=== PATIENT | male | born 1940 | race Caucasian/White ===

== ENCOUNTER → 2018-02-11 | Outpatient (CLI) | payer MEDICARE, OTHER ==
[2015-09-16 11:39] VITALS: BMI 20.5
[~2018-02-11] MED LIST: AMLO-101 PO; ASPI-1403 PO; AZIT500T47 PO; CEPH-13 PO; COZAAR PO; DUONEB INH; FLUT12HF2 IH; FURO-45 PO; IBAN150T6 PO; LEV500 PO; LEVO-85 PO; LOR1 PO; LORA-1455 PO; LOSA100T67 PO; MACRODANTIN PO; METH4TAB66 PO; METO-233 PO; MOX400 PO; MOXI400T28 PO; MYCO250C36 PO; NEXIUM PO; NOVASTATIN PO; PHEN-530 PO; PRE20 PO; PRED-314 PO; RIVA20TA PO; SYNTHROID PO; ZOCOR PO; [UNRECOGNIZED DRUG - CODE] PO; bactrim PO
[2018-02-11 14:12] LABS: PLATELET COUNT, AUTOMATED 260 K/uL (150-450)
== END ==
LOC: LAB 13:45
PROVIDERS: ATTEND Internal Medicine Nephrology
DX: N18.3 Chronic kidney disease, stage 3 (moderate) (principal); C61 Malignant neoplasm of prostate; I27.0 Primary pulmonary hypertension; J84.9 Interstitial pulmonary disease, unspecified
CPT/HCPCS: 36415; 82040; 82310; 82374; 82435; 82565; 82947; 83735; 84100; 84132; 84295; 84520; 85025

== ENCOUNTER → 2018-02-12 | Outpatient (CLI) | payer MEDICARE, OTHER ==
[2015-09-16 11:39] VITALS: BMI 20.5
[~2018-02-12] MED LIST changes: +DEXTROSE 5%(*) 100 ML BAG 100 ML IVPB PRN; +LIDOCAINE/SOD BICARB 8.4% SYR ID PRN; +MAGNESIUM SUL* 2 GM/50 ML IVPB 50 ML IVPB ONE; +NS(*) 0.9% 100 ML BAG 100 ML IVPB PRN
[2018-02-12 13:38] VITALS: BP 100/66
== END ==
LOC: SPU 13:16
PROVIDERS: ATTEND Internal Medicine Nephrology
DX: E83.42 Hypomagnesemia (principal)
CPT/HCPCS: 96365; J3475

== ENCOUNTER → 2018-02-15 | Outpatient (CLI) | payer MEDICARE, OTHER ==
[2015-09-16 11:39] VITALS: BMI 20.5
[~2018-02-15] MED LIST changes: -DEXTROSE 5%(*) 100 ML BAG 100 ML IVPB PRN; -LIDOCAINE/SOD BICARB 8.4% SYR ID PRN; -MAGNESIUM SUL* 2 GM/50 ML IVPB 50 ML IVPB ONE; -NS(*) 0.9% 100 ML BAG 100 ML IVPB PRN
== END ==
LOC: LAB 13:58
PROVIDERS: ATTEND Internal Medicine Nephrology
DX: N18.3 Chronic kidney disease, stage 3 (moderate) (principal); E83.52 Hypercalcemia
CPT/HCPCS: 36415; 82310; 82374; 82435; 82565; 82947; 83735; 84132; 84295; 84520

== ENCOUNTER → 2018-02-16 | Outpatient (CLI) | payer MEDICARE, OTHER ==
[2015-09-16 11:39] VITALS: BMI 20.5
[~2018-02-16] MED LIST changes: +DEXTROSE 5%(*) 100 ML BAG 100 ML IVPB PRN; +LIDOCAINE/SOD BICARB 8.4% SYR ID PRN; +MAGNESIUM SUL* 2 GM/50 ML IVPB 50 ML IVPB ONE; +NS(*) 0.9% 100 ML BAG 100 ML IVPB PRN
[2018-02-16 14:40] VITALS: BP 91/62
== END ==
LOC: SPU 10:55
PROVIDERS: ATTEND Internal Medicine Nephrology
DX: E83.42 Hypomagnesemia (principal)
CPT/HCPCS: 96365; J3475; J7050

== ENCOUNTER → 2018-03-04 | Outpatient (CLI) | payer MEDICARE, OTHER ==
[2015-09-16 11:39] VITALS: BMI 20.5
[~2018-03-04] MED LIST changes: -DEXTROSE 5%(*) 100 ML BAG 100 ML IVPB PRN; -LIDOCAINE/SOD BICARB 8.4% SYR ID PRN; -MAGNESIUM SUL* 2 GM/50 ML IVPB 50 ML IVPB ONE; -NS(*) 0.9% 100 ML BAG 100 ML IVPB PRN
== END ==
LOC: LAB 14:26
PROVIDERS: ATTEND Internal Medicine Nephrology
DX: I12.9 Hypertensive chronic kidney disease with stage 1 through stage 4 chronic kidney disease, or unspecified chronic kidney disease (principal); N18.2 Chronic kidney disease, stage 2 (mild); E83.42 Hypomagnesemia
CPT/HCPCS: 36415; 82310; 82374; 82435; 82565; 82947; 83735; 84132; 84295; 84520

== ENCOUNTER → 2018-03-05 | Outpatient (CLI) | payer MEDICARE, OTHER ==
[2015-09-16 11:39] VITALS: BMI 20.5
== END ==
LOC: LAB 11:27
PROVIDERS: ATTEND Internal Medicine Nephrology
DX: N18.3 Chronic kidney disease, stage 3 (moderate) (principal); E83.42 Hypomagnesemia; I27.0 Primary pulmonary hypertension
CPT/HCPCS: 36415; 82310; 82374; 82435; 82565; 82570; 82947; 83735; 84132; 84295; 84520

== ENCOUNTER → 2018-03-09 | Outpatient (CLI) | payer MEDICARE, OTHER ==
[2015-09-16 11:39] VITALS: BMI 20.5
== END ==
LOC: LAB 11:03
PROVIDERS: ATTEND Internal Medicine Nephrology
DX: E83.52 Hypercalcemia (principal); I12.9 Hypertensive chronic kidney disease with stage 1 through stage 4 chronic kidney disease, or unspecified chronic kidney disease; N18.2 Chronic kidney disease, stage 2 (mild)
CPT/HCPCS: 36415; 82310; 82374; 82435; 82565; 82947; 83735; 84132; 84295; 84520

== ENCOUNTER → 2018-04-14 | Outpatient (CLI) | payer MEDICARE, OTHER ==
[2015-09-16 11:39] VITALS: BMI 20.5
== END ==
LOC: LAB 11:06
PROVIDERS: ATTEND Internal Medicine Nephrology
DX: I12.9 Hypertensive chronic kidney disease with stage 1 through stage 4 chronic kidney disease, or unspecified chronic kidney disease (principal); N18.2 Chronic kidney disease, stage 2 (mild); E83.42 Hypomagnesemia
CPT/HCPCS: 36415; 82310; 82374; 82435; 82565; 82947; 83735; 84132; 84295; 84520

== ENCOUNTER 2018-04-15 13:00 | Outpatient (RCR) | payer MEDICARE, OTHER ==
[2015-09-16 11:39] VITALS: BMI 20.5
[2018-03-05 13:58] VITALS: BP 106/47
[~2018-04-15 13:00] MED LIST changes: +MAGNESIUM SUL* 2 GM/50 ML IVPB 50 ML IVPB ONE
[2018-04-15 13:15] VITALS: BP 124/64
[2018-04-15] MEDS ORDERED: DEXTROSE 5%(*) 100 ML BAG 100 ML IVPB PRN (13:35)
[2018-04-15] MEDS ORDERED: LIDOCAINE/SOD BICARB 8.4% SYR ID PRN (13:35)
[2018-04-15] MEDS ORDERED: NS(*) 0.9% 100 ML BAG 100 ML IVPB PRN (13:35)
[2018-04-15] MEDS ORDERED: MAGNESIUM SUL* 2 GM/50 ML IVPB 50 ML IVPB ONE (13:35)
[2018-04-15 16:01] VITALS: BP 125/82
== END 2018-04-29 10:48 | disposition home or self-care (01) ==
LOC: SPU 13:00
PROVIDERS: ATTEND Internal Medicine Nephrology
DX: N18.3 Chronic kidney disease, stage 3 (moderate) (principal); E83.42 Hypomagnesemia
CPT/HCPCS: 96365; 96366; J3475; J7050; 36415; 82310; 82374; 82435; 82565; 82570; 82947; 83735; 84132; 84295; 84520

== ENCOUNTER → 2018-04-19 | Outpatient (CLI) | payer MEDICARE, OTHER ==
[2015-09-16 11:39] VITALS: BMI 20.5
[~2018-04-19] MED LIST changes: -MAGNESIUM SUL* 2 GM/50 ML IVPB 50 ML IVPB ONE
== END ==
LOC: LAB 14:49
PROVIDERS: ATTEND Internal Medicine Nephrology
DX: I12.9 Hypertensive chronic kidney disease with stage 1 through stage 4 chronic kidney disease, or unspecified chronic kidney disease (principal); N18.2 Chronic kidney disease, stage 2 (mild); E83.42 Hypomagnesemia
CPT/HCPCS: 82570; 83735

== ENCOUNTER → 2018-04-29 | Outpatient (CLI) | payer MEDICARE, OTHER ==
[2015-09-16 11:39] VITALS: BMI 20.5
--- NOTE | 2018-05-05 15:27 | RADIOLOGY IMAGING REPORT ---
FACILITY: [facility] PATIENT NAME: CLARISA GLOVER : [id number] MR: [id number] V: [id number] EXAM DATE: [id number] ORDERING PHYSICIAN: ROBERTO KENT TECHNOLOGIST: [place] RDNE, [facility] EXAMINATION:TWO-DIMENSIONAL ECHOCARDIOGRAPH REASON:AFIB/CP/CHF/PALPITATIONS 2D Measurements (normal values in centimeters) LV endLV endRV endVent.LV PostAorticLeftPercent DiastolicSystolicDiastolicSeptumWallRootAtriumShortening (3.5-5.7)(0.9-2.6)(0.6-1.1)(0.6-1.1)(2.0-3.7)(1.9-4.0)(25-35%) [id number]% STROKE VOLUME: 27ml ESTIMATED EJECTION FRACTION:68-70% LEFT VENTRICLE: Normal size & function, ejection fraction 65-70%. Diastolic function difficult to assess given persistent atrial fibrillation throughout study. RIGHT VENTRICLE: Normal size & function. RIGHT ATRIUM: Normal size & function. LEFT ATRIUM: Normal size & function, no evidence of intra atrial shunting on Color flow Doppler. AORTIC VALVE: Trileaflet valve, mild sclerosis, no significant stenosis or regurgitation. PULMONIC VALVE: Poorly visualized, mild pulmonic regurgitation, no significant stenosis. MITRAL VALVE: Trace mitral regurgitation, no stenosis, overall normal structure & function. TRICUSPID VALVE: Mild to moderate regurgitation, RVSP 35-40mm Hg. PERICARDIUM: No evidence of pericardial effusion. EXTRACARDIAC SPACE: No pleural effusion. GREAT VESSELS: Aortic size within normal limits. OVERALL IMPRESSION: 1. Ejection fraction 65-70%. 2. Mild to moderate TR with an RVSP of 35-40mm Hg. 3. Mild pulmonic insufficiency. 4. Patient was in atrial fibrillation throughout the entirety of the study. 5. Compared to prior 07/07/13 essentially unchanged. Dictated by: Mariano Parr M.D. on 04/29/2018 at 16:00 Transcribed by: KARLA on 04/30/2018 at 7:03 Approved by: Mariano Parr M.D. on 04/30/2018 at 17:26 [facility] [employer]
== END ==
LOC: US 04-27 02:09
PROVIDERS: ATTEND Internal Medicine Cardiovascular Disease
DX: I37.0 Nonrheumatic pulmonary valve stenosis (principal); I48.91 Unspecified atrial fibrillation
CPT/HCPCS: 93306

== ENCOUNTER → 2018-05-14 | Outpatient (CLI) | payer MEDICARE, OTHER ==
[2015-09-16 11:39] VITALS: BMI 20.5
== END ==
LOC: LAB 10:51
PROVIDERS: ATTEND Internal Medicine Nephrology
DX: I12.9 Hypertensive chronic kidney disease with stage 1 through stage 4 chronic kidney disease, or unspecified chronic kidney disease (principal); N18.3 Chronic kidney disease, stage 3 (moderate); E83.42 Hypomagnesemia
CPT/HCPCS: 36415; 82040; 82310; 82374; 82435; 82565; 82947; 83735; 84100; 84132; 84295; 84520

== ENCOUNTER → 2018-12-29 | Outpatient (CLI) | payer MEDICARE, OTHER ==
[2015-09-16 11:39] VITALS: BMI 20.5
[~2018-12-29] MED LIST changes: -LOSA100T67 PO; +LOSA100T75 PO
== END ==
LOC: LAB 15:21
PROVIDERS: ATTEND Internal Medicine Cardiovascular Disease
DX: I25.10 Atherosclerotic heart disease of native coronary artery without angina pectoris (principal)
CPT/HCPCS: 36415; 82040; 82247; 82310; 82374; 82435; 82465; 82565; 82947; 83718; 83735; 84075; 84132; 84155; 84295; 84450; 84460; 84478; 84520

== ENCOUNTER → 2019-01-03 | Outpatient (CLI) | payer MEDICARE, OTHER ==
[2015-09-16 11:39] VITALS: BMI 20.5
== END ==
LOC: LAB 15:16
PROVIDERS: ATTEND Internal Medicine Cardiovascular Disease
DX: E83.42 Hypomagnesemia (principal)
CPT/HCPCS: 36415; 83735

== ENCOUNTER → 2019-01-21 | Outpatient (CLI) | payer MEDICARE, OTHER ==
[2015-09-16 11:39] VITALS: BMI 20.5
--- NOTE | 2019-01-21 16:58 | RADIOLOGY IMAGING REPORT ---
FACILITY: [facility] [place] PATIENT NAME: Edward Baez : 1940 MR: [id number] V: [id number] EXAM DATE: ORDERING PHYSICIAN: OLIVIA NATARAJAN TECHNOLOGIST: Location: [facility] [place] Patient: Edward Baez : 1940 Visit/Account:[id number] Date of Sevice: 01/21/2019 CT CHEST W/O CONTRAST HISTORY: Interstitial lung disease. TECHNIQUE: CT chest without intravenous contrast. One of the following dose optimization techniques was utilized in the performance of this exam: Autom ated exposure control; adjustment of the mA and/or kV according to the patient's size; or use of an i terative reconstruction technique. Specific details can be referenced in the facility's radiology C T exam operational policy. CONTRAST: None. COMPARISON: CT dated April 22, 2017. FINDINGS: Heart/vessels: Advanced calcifications within the coronary arteries. There is biatrial cardiac enla rgement. Moderate atherosclerosis within the thoracic aorta and proximal arch vessels. Mediastinum: Fluid within the esophagus raising the possibility of dysmotility and/or reflux. Lymph nodes: Numerous subcentimeter and borderline prominent mediastinal/hilar lymph nodes. For exa mple, an AP window lymph node measures 22 x 13 mm (image 35 of series 5), previously 22 x 12 mm. Add itional lymph nodes are not significantly changed. Lungs/pleura: Interstitial thickening with a basilar predominance. Traction bronchiectasis within t he lung bases. There appears to be honeycombing within the lung bases, left greater than right. Non specific groundglass within the lung bases, left greater than right. Cannot accurately assess for air trapping secondary to poor expiratory effort. Scattered calcified g ranulomas. Visualized upper abdomen: Negative. Bones/soft tissues: Negative. IMPRESSION: 1. Interstitial lung disease which is not appear to be significantly changed since the prior CT. Wh ile many findings suggest a UIP pattern of interstitial lung disease, there is associated groundglass in the lung bases which is atypical for a UIP pattern. CT findings as well as relative stability ma y be related to an NSIP pattern. 2. Advanced calcifications within the coronary arteries. 3. Additional incidental/chronic findings, as above. Report Dictated By: Eyal Carter MD at 01/21/2019 4:45 PM Report E-Signed By: Eyal Carter MD at 01/21/2019 4:53 PM WSN:[id number]
== END ==
LOC: CT 01-18 00:42
PROVIDERS: ATTEND Internal Medicine
DX: I25.10 Atherosclerotic heart disease of native coronary artery without angina pectoris (principal); J84.9 Interstitial pulmonary disease, unspecified; I70.0 Atherosclerosis of aorta; R91.8 Other nonspecific abnormal finding of lung field
CPT/HCPCS: 71250; 93306

== ENCOUNTER → 2019-02-01 | Outpatient (CLI) | payer MEDICARE, OTHER ==
[2015-09-16 11:39] VITALS: BMI 20.5
[~2019-02-01] MED LIST changes: +IBAN150T16 PO; -IBAN150T6 PO
== END ==
LOC: RESP 02:42
PROVIDERS: ATTEND Internal Medicine
DX: J98.4 Other disorders of lung (principal)
CPT/HCPCS: 94060; 94726; 94729

== ENCOUNTER → 2019-03-02 | Outpatient (CLI) | payer MEDICARE, OTHER ==
[2015-09-16 11:39] VITALS: BMI 20.5
[2019-03-02 12:41] LABS: PLATELET COUNT, AUTOMATED 195 K/uL (150-450)
== END ==
LOC: LAB 12:14
PROVIDERS: ATTEND Internal Medicine
DX: M34.9 Systemic sclerosis, unspecified (principal); R06.02 Shortness of breath
CPT/HCPCS: 36415; 82040; 82247; 82310; 82374; 82435; 82565; 82947; 84075; 84132; 84155; 84295; 84450; 84460; 84520; 85025

== ENCOUNTER → 2019-03-28 | Outpatient (CLI) | payer MEDICARE, OTHER ==
[2015-09-16 11:39] VITALS: BMI 20.5
[~2019-03-28] MED LIST changes: +AMIL5TAB11; +AMLO-125; +ATOR40TA69; +CALC600T63 PO; +LEVO112T83; +LOSA50TA80; +LUTE1BEA MC; +MAGN400T36 PO; +METO50TA19; +MYCO250C38 PO; +OMEG10007; +OMEP40CA48; +OXYC-865 PO
--- NOTE | 2019-03-28 15:19 | RADIOLOGY IMAGING REPORT ---
FACILITY: [facility] [place] PATIENT NAME: Edward Baez : 1940 MR: [id number] V: [id number] EXAM DATE: ORDERING PHYSICIAN: SAMREEN DE LA TORRE TECHNOLOGIST: [place] [facility] [place] Patient: Edward Baez : 1940 Visit/Account:[id number] Date of Sevice: 03/28/2019 Technique: L-SPINE 2 OR 3 VIEW HISTORY: see dx Comparison studies: None FINDINGS: There is no acute fracture. 5 nonrib-bearing lumbar type vertebral bodies are present. No laquita is a levoscoliotic curvature with the apex at L2. Endplate osteophyte formation. Intervertebral disc space narrowing is seen at L5-S1. There is corresponding facet arthropathy at this respective level. Additionally, there is 4 mm retrolisthesis of L4 on L5 and 7 mm anterolisthesis of L5 on S1. Atherosclerotic changes are noted IMPRESSION: 1. Degenerative findings as characterized above. Report Dictated By: Ramírez Diaz DO at 03/28/2019 3:13 PM Report E-Signed By: Ramírez Diaz DO at 03/28/2019 3:15 PM WSN:[id number]
== END ==
LOC: RAD 14:22
PROVIDERS: ATTEND Internal Medicine
DX: M51.36 Other intervertebral disc degeneration, lumbar region (principal)
CPT/HCPCS: 72100

== ENCOUNTER → 2019-04-11 | Outpatient (CLI) | payer MEDICARE, OTHER ==
[2015-09-16 11:39] VITALS: BMI 20.5
[~2019-04-11] MED LIST changes: -AMIL5TAB11; +AMIL5TAB11 PO; -AMLO-125; +AMLO-125 PO; -ATOR40TA69; +ATOR40TA69 PO; -LEVO112T83; +LEVO112T83 PO; -LOSA50TA80; +LOSA50TA80 PO; +MAGN500T6 PO; -METO50TA19; +METO50TA19 PO; -OMEP40CA48; +OMEP40CA48 PO
[2019-04-11 13:31] LABS: PLATELET COUNT, AUTOMATED 194 K/uL (150-450)
== END ==
LOC: LAB 13:12
PROVIDERS: ATTEND Internal Medicine
DX: I48.91 Unspecified atrial fibrillation (principal); Z85.46 Personal history of malignant neoplasm of prostate; I12.9 Hypertensive chronic kidney disease with stage 1 through stage 4 chronic kidney disease, or unspecified chronic kidney disease; E03.9 Hypothyroidism, unspecified; E83.42 Hypomagnesemia; N18.9 Chronic kidney disease, unspecified; M34.9 Systemic sclerosis, unspecified; I27.20 Pulmonary hypertension, unspecified; J84.9 Interstitial pulmonary disease, unspecified
CPT/HCPCS: 36415; 82040; 82247; 82306; 82310; 82374; 82435; 82465; 82565; 82607; 82947; 83718; 83735; 84075; 84100; 84132; 84153; 84155; 84295; 84439; 84443; 84450; 84460; 84478; 84520; 85025

== ENCOUNTER → 2019-05-02 | Outpatient (CLI) | payer MEDICARE, OTHER ==
[2015-09-16 11:39] VITALS: BMI 20.5
== END ==
LOC: LAB 15:08
PROVIDERS: ATTEND Internal Medicine
DX: E83.42 Hypomagnesemia (principal)
CPT/HCPCS: 36415; 82310; 82374; 82435; 82565; 82947; 84132; 84295; 84520

== ENCOUNTER → 2019-05-25 | Outpatient (CLI) | payer MEDICARE, OTHER ==
[2015-09-16 11:39] VITALS: BMI 20.5
== END ==
LOC: LAB 15:21
PROVIDERS: ATTEND Internal Medicine Cardiovascular Disease
DX: I25.10 Atherosclerotic heart disease of native coronary artery without angina pectoris (principal)
CPT/HCPCS: 36415; 82465; 83718; 84478

== ENCOUNTER 2019-07-09 21:04 | Inpatient (IN) | payer MEDICARE, OTHER ==
[2015-09-16 11:39] VITALS: Wt 61.2 kg
[~2019-07-09 21:04] MED LIST changes: -ALPR-429 PO; -CEPH500C24 PO; -LUTE6CAP11 PO; -OMEG-11 PO; -PRED-420 PO; -SERT-184 PO
--- NOTE | 2019-07-09 21:11 | ER Report ---
History and Physical Time Seen By MD: 21:07 HPI/ROS CHIEF COMPLAINT: Syncope, fall, right leg pain HISTORY OF PRESENT ILLNESS: 79-year-old male with a history of a chronic lung condition chronically on O2, had a syncopal episode and collapsed at home. He was found unresponsive on the floor. He is complaining of leg pain on standing up at the assist of EMS. He did have a syncopal sensation. At that time and EMS put him on the gurney. He was grossly hypoxic on their arrival. Pulse ox in the 70s, but patient has Raynaud, so he has peripheral vasoconstriction. Patient notes no recent illness, fever, chills, or sputum production other than usual. Patient's and daughter report no physical changes over the last 24 hours. They think yesterday he was forgetful and speaking in tangential thoughts. REVIEW OF SYSTEMS: Respiratory: No cough, no dyspnea. Cardiovascular: No chest pain, no palpitations. Gastrointestinal: No vomiting, no abdominal pain. Musculoskeletal: No back pain. Allergies: Coded Allergies: rivaroxaban (Unverified Allergy, Unknown, 09/16/15) Home Meds Active Scripts Magnesium Oxide (MAGNESIUM OXIDE) 500 Mg Tablet, 500 MG PO DIRECTED, #30 2 in am 2 at noon 2 at night Prov:SAMREEN RAINEY MD 04/11/19 Reported Medications Losartan Potassium (LOSARTAN POTASSIUM) 50 Mg Tablet, 0.5 TAB PO QDAY 03/28/19 Amiloride Hcl (AMILORIDE HCL) 5 Mg Tablet, 1 TAB PO QDAY 03/28/19 Omeprazole (OMEPRAZOLE) 40 Mg Capsule.dr, 1 TAB PO QDAY 03/28/19 Metoprolol Succinate (METOPROLOL SUCCINATE) 50 Mg Tab.er.24h, 50 MG PO QDAY 03/28/19 Atorvastatin Calcium (ATORVASTATIN CALCIUM) 40 Mg Tablet, 40 MG PO QDAY 03/28/19 Levothyroxine Sodium (LEVOXYL) 112 Mcg Tablet, 1 TAB PO QDAY 03/28/19 Mycophenolate Mofetil (MYCOPHENOLATE MOFETIL) 250 Mg Capsule, 750 CAP PO BID 03/28/19 Aspirin (ADULT LOW DOSE ASPIRIN EC) 81 Mg Tablet.dr, 1 TAB PO QAM, 0 Refills 05/09/13 Discontinued Reported Medications Amlodipine Besylate (AMLODIPINE BESYLATE) 5 Mg Tablet, 1 TAB PO QDAY 03/28/19 Past Medical/Surgical History Copied from Dr. Rainey April 17 note This patient is a pleasant 78-year-old male who came in today to see me for the follow-up he recently established care with me Patient was seen recently because of low back pain radiating into his left leg however he mentioned that pain has improved he does not wish to take any medications or do physical therapy Past medical history significant for diffuse systemic sclerosis for which he is currently on mycophenolate 750 mg twice a day it was started by his calender machine operator according to patient he has not seen his calender machine operator for more than one year. He has been advised to start following up with his calender machine operator again patient does not wish to go to [place] but is agreeable to going to [place] and we will make arrangements Past medical history significant for interstitial lung disease likely related to connective tissue disorder he has recently established care with research tech Dr. Vaughan most recent CT scan of the chest was done on 01/21/2019 which showed evidence of interstitial lung disease but not significantly changed from the prior CT patient also has undergone echocardiogram on 01/21/2019 which has shown LVEF of 65-70% and right ventricular systolic pressure above 80 it is also shown severe tricuspid regurgitation patient has undergone pulmonary function test on 02/01/2019 which has shown moderate restrictive lung disease and severe decrease in diffusing capacity there was no evidence of obstructive lung disease although he did have good response to bronchodilators Past medical history significant for pulmonary hypertension which appears to be severe with right ventricular systolic pressure of about 80 he was unable to complete 6 minute walk test it appears that 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 Patient gets short of breath and hypoxic. He easily with minor exertion patient has been referred to Dr. cline for right heart catheter As medical history significant for paroxysmal atrial fibrillation for which he is not on any anticoagulation due to prior history of hemoptysis he is currently following up with laundry technician Dr. Sharma. Patient has no history of coronary artery disease that he knows of he will continue with aspirin 81 mg daily *Medical history significant for stage III chronic kidney disease with most recent labs showing BUN of 28 and creatinine of 1.30 Past medical history also significant for severe hypomagnesemia he was following up with the lithographic retoucher apprentice but has not seen them for one year's currently on magnesium supplements was also prescribed Amiloride to help decrease renal magnesium wasting Past medical history significant for GERD and is currently on proton pump inhibitor and seems to be doing well Past medical history significant for hypertension and is controlled on the present treatment Past medical history significant for hyperlipidemia for which he was recently switched to atorvastatin by his laundry technician History significant for prostate cancer which was treated with radiation Past Medical History Cardiovascular: Reports hx of: atrial fibrillation hyperlipidemia hypertension Respiratory: Reports hx of: pneumonia (recurrent) pulmonary hypertension other respiratory history (interstitial lung disease, chronic hypoxemia) Gastrointestinal: Reports hx of: GERD Genitourinary: Reports hx of: chronic renal failure (CKD Stage III) urinary tract infection (recurrent) Integumentary: Reports hx of: other integumentary hx (Scleroderma) Endocrine: Reports hx of: hypothyroidism Hematology/oncology (M): Reports hx of: anemia prostate cancer other hematologic history (hemoptysis, secondary to xarelto therapy; Raynaud's Syndrome) Past Surgical History HEENT: Reports hx of: tonsillectomy Gastrointestinal: Reports hx of: other GI surgery (cscope) Genitourinary - Male: Reports hx of: vasectomy Hx Smoking: Yes Smoking Status: Former Smoker Hx Substance Use Disorder: No Hx Alcohol Use: Yes Constitutional Vital Sign - Last 24 Hours 07/09/19 07/09/19 07/09/19 07/09/19 21:07 21:09 21:15 21:30 Temp 98.0 Pulse 114 110 Resp 18 22 B/P (MAP) 125/72 (89) 125/72 Pulse Ox 90 O2 Delivery Non-Rebreather O2 Flow Rate 10.0 07/09/19 07/09/19 07/09/19 07/09/19 21:30 21:30 21:34 22:10 Pulse 116 Resp 34 B/P (MAP) 102/58 (73) 121/72 (88) Pulse Ox 87 79 O2 Delivery Oxy Mask O2 Flow Rate 12.0 07/09/19 07/09/19 22:30 22:34 Pulse 102 Resp 22 B/P (MAP) 109/78 (88) Pulse Ox 86 Physical Exam Vital signs stable, afebrile, pulse ox normal on nonrebreather mask at 10 L, tachycardic in the low 100s General Appearance: The patient is alert, has no immediate need for airway protection and no current signs of toxicity. Slightly pale appearing, skin warm and dry. Alert and oriented 3, cordial, good sense of humor HEENT: Pupils equal and round no injection. Oropharynx without redness or exudate, mucous. Membranes are moist, no dental trauma Respiratory: Chest is non tender, lungs are clear to auscultation. Bibasilar rails, Velcro in nature, probably chronic Cardiac: regular rate and rhythm, distant heart sounds Gastrointestinal: Abdomen is soft and non tender, no masses, bowel sounds normal. Musculoskeletal: Neck: Neck is supple and non tender. No JVD, no lymphadenopathy Extremities have full range of motion and are non tender. Right ankle is grossly swollen and slightly ecchymotic. It is tender to palpation. Hips are unremarkable, right lower cavity is neurovascularly intact. Skin: No rashes or lesions. DIFFERENTIAL DIAGNOSIS: After history and physical exam differential diagnosis was considered for syncope including but not limited to vasovagal syncope, arrhythmia, dehydration, and blood loss. Medical Decision Making Data Points Result Diagram: 07/09/19205407/09/192054 Laboratory Hematology Test 07/09/19 20:55 White Blood Count 14.2 k/uL (4.5-11.0) H Red Blood Count 4.25 M/uL (4.00-5.60) Hemoglobin 12.6 g/dL (14.0-18.0) L Hematocrit 39.2 % (42.0-52.0) L Mean Corpuscular Volume 92.2 fL (80.0-96.0) Mean Corpuscular Hemoglobin 29.5 pg (26.0-33.0) Mean Corpuscular Hemoglobin Concent 32.0 g/dL (32.0-36.0) Red Cell Distribution Width 13.6 % (11.5-14.5) Platelet Count 331 K/uL (150-450) Mean Platelet Volume 7.2 fL (7.2-11.1) Neutrophils (%) (Auto) 62.8 % (39.4-72.5) Lymphocytes (%) (Auto) 29.7 % (17.6-49.6) Monocytes (%) (Auto) 4.7 % (4.1-12.4) Eosinophils (%) (Auto) 2.4 % (0.4-6.7) Basophils (%) (Auto) 0.4 % (0.3-1.4) Nucleated RBC Relative Count (auto) 0.1 /100WBC Neutrophils # (Auto) 8.9 K/uL (2.0-7.4) H Lymphocytes # (Auto) 4.2 K/uL (1.3-3.6) H Monocytes # (Auto) 0.7 K/uL (0.3-1.0) Eosinophils # (Auto) 0.3 K/uL (0.0-0.5) Basophils # (Auto) 0.1 K/uL (0.0-0.1) Nucleated RBC Absolute Count (auto) 0.01 K/uL Peripheral Blood Smear Yes Y/N Chemistry Test 07/09/19 20:55 Sodium Level 137 mmol/L (137-145) Potassium Level 4.3 mmol/L (3.5-5.0) Chloride Level 96 mmol/L (98-107) Carbon Dioxide Level 26 mmol/L (22-30) Blood Urea Nitrogen 22 mg/dl (9-21) Creatinine 1.20 mg/dl (0.66-1.25) Glomerular Filtration Rate Calc 58.1 Random Glucose 167 mg/dl (75-110) Lactate 6.8 mmol/L (0.7-2.1) Calcium Level 9.3 mg/dl (8.4-10.2) Total Bilirubin 0.7 mg/dl (0.2-1.3) Aspartate Amino Transf (AST/SGOT) 44 U/L (0-35) Alanine Aminotransferase (ALT/SGPT) 29 U/L (0-56) Alkaline Phosphatase 89 U/L (0-126) Troponin I < 0.012 ng/ml B-Type Natriuretic Peptide 864 pg/ml (0-100) Total Protein 7.1 g/dl (6.3-8.2) Albumin 4.2 g/dl (3.5-5.0) Urinalysis Test 07/09/19 22:58 Urine Color Yellow Urine Clarity Slightly-cloudy Urine pH 5.0 pH (4.8-9.5) Urine Specific [place] 1.017 Urine Protein Negative mg/dL (NEGATIVE) Urine Glucose (UA) Negative mg/dL (NEGATIVE) Urine Ketones Negative mg/dL (NEGATIVE) Urine Blood Small (NEGATIVE) Urine Nitrite Negative (NEGATIVE) Urine Bilirubin Negative (NEGATIVE) Urine Urobilinogen Negative mg/dL (0.2-1.9) Urine Leukocyte Esterase Moderate (NEGATIVE) Urine RBC 2 /HPF (0-2/HPF) Urine WBC 41 /HPF (0-5/HPF) Urine Squamous Epithelial Cells None /LPF (</=FEW) Urine Bacteria Few /HPF (NONE-FEW) Urine Hyaline Casts Few /LPF (NONE-FEW) Urine Mucus None /HPF (NONE-FEW) EKG/Imaging EKG Interpretation 12 lead EK Rhythm: Atrial fibrillation rate 1 11 bpm, premature aberrantly conducted complexes [place]: normal QRS: normal ST segments: normal, comparison to previous EKGs 08/28/14 and 09/16/15, no significant change, patient was previously in atrial fibrillation. He has a history of paroxysmal atrial fibrillation Imaging X-ray: Single view portable chest x-ray was obtained. I viewed the images myself on the PACS system. My interpretation of the images is: Bilateral interstitial infiltrates versus chronic scarring, previous film 09/16/15 shows some minimal scarring. There is also suggestion of a right pleural effusion. The radiologist interpretation had no clinically significant variation from this interpretation. X-ray: Right ankle, 3 views was obtained. I viewed the images myself on the PACS system. My interpretation of the images is: There is a nondisplaced fracture of the distal fibula. The radiologist interpretation had no clinically significant variation from this interpretation. Results: CT scan of the head without contrast was obtained. The results of the study are no acute findings, see report. The study was read by the radiologist. I viewed the images myself on the PACS system. ED Course/Re-evaluation Clinical Indication for ER IV: IV Access ED Course Patient admitted to an examination room by EMS. H&P was done. The differential diagnoses was considered. Patient with an extensive past medical history, chronically on 6 L by nasal cannula. Chronically hypoxic easily short of breath with exertion. Tonight had a single episode without any prodromal symptoms. Patient's diagnostic laboratories show an elevated white blood cell count of 14,000. Patient has elevated lactate 6.9, suggesting a hypoxic episode or sepsis. Patient's chest x-ray has interstitial infiltrate that likely chronic compared to his finisher card tender film from his CT scan from December appears to be more infiltrate in the right lower lobe. There is question shira of a pleural effusion. Patient was hypoxic. On EMSs arrival with a pulse ox of 70%. They put him on 10 L by mask. His saturations improved, but he has renal disease. EMS had difficulty establishing a good pulse ox. Patient was treated with a DuoNeb on arrival to the ER. His oxygenation has improved. Patient was in good spirits. He had 5-6 word dyspnea on arrival. Blood cultures were drawn. Patient voided at home before collapsing. He's been unable to provide a urine at this time. His BMP is elevated 864. He appears to be in atrial fibrillation on his EKG. He has a history of paroxysmal atrial fibrillation, previous EKG shows similar rhythms. An ABG was performed to verify his oxygenation status and to see if there was CO2 retention. His family reports altered mental status since yesterday. He was somewhat forgetful and tangential in his reasoning. Patient's family states that he was in his normal usual state of health. All last evening. He's had no infectious symptoms. She's not been complaining of shortness of breath or chest pain. Patient had right ankle pain. Upon standing up. EMS notes lateral swelling. X-rays show a nondisplaced fibular fracture on the right. Patient was placed in a walking boot for protection. Patient had a CT scan of the head performed which was unremarkable. ABG shows pH 7.40, PCO2 of 41, PO2 of 47, HCO3 26, base excess 1, O2 sat correlates at 83% with what were noting on the pulse ox. 07/09/2019 10:59:25 pm case discussed with Rolando Singh hospitalist on-call, who except the patient for admission for further observation of his altered mental status and his hypoxia 07/09/2019 11:10:36 pm [place] was discussed with Dr. Fuentes orthopedics on-call, who agrees with support with a boot. He thinks it is a nonoperative case. He advises toe-touch weightbearing only as tolerated. Decision to Disposition Date: Jul 09, 2019 Decision to Disposition Time: 21:42 Critical Care Time I spent a total of 60 minutes of critical care time in obtaining history, performing a physical exam, bedside monitoring of interventions, collecting and interpreting tests and discussion with consultants but not including time spent performing procedures. Depart Departure Latest Vital Signs Vital Signs Date Time Temp Pulse Resp B/P (MAP) Pulse Ox O2 Delivery O2 Flow Rate FiO2 8/10/19 22:34 102 22 86 07/09/19 22:30 109/78 (88) 07/09/19 21:30 Oxy Mask 12.0 07/09/19 21:09 98.0 Impression: Primary Impression: Syncope Additional Impressions: Fall in elderly patient Closed right fibular fracture Altered mental status, unspecified Condition: Improved Disposition: Admitted from ER Problem Qualifiers Primary Impression: Syncope Syncope type: unspecified Qualified Codes: R55 - Syncope and collapse Additional Impressions: Closed right fibular fracture Encounter type: initial encounter Fibula location: distal Fracture morphology: unspecified fracture morphology Qualified Codes: S82.831A - Other fracture of upper and lower end of right fibula, initial encounter for closed fracture Altered mental status, unspecified Altered mental status type: disorientation Qualified Codes: R41.0 - Disorientation, unspecified MELY SANDOVAL DO Jul 09, 2019 21:11
[2019-07-09] MEDS ORDERED: ALBUTEROL/IPRATROPIUM 3 ML NEB NEB ONE ×2 (21:15→23:10)
[2019-07-09 21:48] LABS: PLATELET COUNT, AUTOMATED 331 K/uL (150-450)
--- NOTE | 2019-07-09 22:09 | RADIOLOGY IMAGING REPORT ---
[facility] PATIENT NAME: Edward Baez : 1940 MR: [id number] V: [id number] EXAM DATE: ORDERING PHYSICIAN: MELY SANDOVAL TECHNOLOGIST: Location: [facility] - [place] Patient: Edward Baez : 1940 Visit/Account:[id number] Date of Sevice: 07/09/2019 EXAMINATION: Portable AP Chest HISTORY: Syncope. Hypoxia. COMPARISON: CT chest 01/21/2019. FINDINGS: Low lung volumes. There are advanced chronic fibrotic changes throughout both lungs, similar to the prior CT. It would be difficult to exclude a region of acute infiltrate in the mid and lower lungs. No confluent consolidation. No pleural effusion or pneumothorax. Normal cardiomediastinal silhouette. Visualized osseous structures appear intact. IMPRESSION: 1. Advanced pulmonary fibrosis, similar to the prior CT. 2. It would be difficult to exclude a region of superimposed infiltrate. If clinically indicated fo llow-up CT could be performed. Report Dictated By: Bentley Romero MD at 07/09/2019 9:59 PM Report E-Signed By: Bentley Romero MD at 07/09/2019 10:02 PM WSN:[id number]
--- NOTE | 2019-07-09 22:21 | RADIOLOGY IMAGING REPORT ---
FACILITY: [facility] - [place] PATIENT NAME: Edward Baez : 1940 MR: [id number] V: [id number] EXAM DATE: ORDERING PHYSICIAN: MELY SANDOVAL TECHNOLOGIST: Location: [facility] [place] Patient: Edward aBez : 1940 Visit/Account:[id number] Date of Sevice: 07/09/2019 INDICATION: fall swollen r/o Fx EXAM DATE: 07/09/2019 9:20 PM COMPARISON: None. FINDINGS: 3 views right ankle. Mineralization is lobe. There is a nondisplaced obliquely oriented fracture dis valentin fracture of the fibula extending to the level of the ankle mortise. Question nondisplaced distal fracture of the medial malleolus. There is soft tissue swelling about the ankle. Multifocal modera te to severe arthrosis. IMPRESSION: Nondisplaced distal fibular fracture and possible nondisplaced distal medial malleolus f racture of the right ankle with surrounding soft tissue swelling. Report Dictated By: Gucci Garcia MD at 07/09/2019 10:05 PM Report E-Signed By: Gucci Garcia MD at 07/09/2019 10:13 PM WSN:[id number]
--- NOTE | 2019-07-09 22:37 | RADIOLOGY IMAGING REPORT ---
FACILITY: [facility] PATIENT NAME: Edward Baze : 1940 MR: [id number] V: [id number] EXAM DATE: ORDERING PHYSICIAN: MELY SANDOVAL TECHNOLOGIST: [place] [facility] [place] Bae[place] : 1940 Visit/Account:[id number] Date of Sevice: 07/09/[address] scan without contrast COMPARISONS: None ADDITIONAL PERTINENT HISTORY: Confusion TECHNIQUE: Multiple axial images were obtained from the skull base to the vertex without IV contrast . One of the following dose optimization techniques was utilized in the performance of this exam: Aut omated exposure control; adjustment of the mA and/or kV according to the patient's size; or use of an iterative reconstruction technique. Specific details can be referenced in the facility's radiology CT exam operational policy. FINDINGS: Midline shift: Negative Ventricles: Mild enlargement of the lateral and third ventricles. Brain parenchyma: Patchy hypoattenuation within the periventricular and subcortical white matter, no nspecific but likely representing small vessel ischemic change on a chronic basis. No intraparenchyma l hemorrhage or mass effect. Extra-axial spaces: Moderate cerebral atrophy. Intracranial vasculature: Cavernous internal carotid and distal vertebral artery calcifications. Osseous structures: Negative Paranasal sinuses and mastoid air cells: Small nasal polyp involving the posterior right nasal cavit y. Mild mucosal thickening involving the ethmoid air cells and both maxillary sinuses. Surrounding soft tissues and orbits: Negative IMPRESSION: 1. Age related changes as described above. 2. No evidence of acute intracranial pathology. Report Dictated By: Charles Gann MD at 07/09/2019 10:26 PM Report E-Signed By: Charles Gnan MD at 07/09/2019 10:29 PM WSN:[id number]
--- NOTE | 2019-07-09 23:04 | EKG ---
FACILITY: [facility] - [place] PATIENT NAME: CLARISA GLOVER : [id number] MR: [id number] V: [id number] EXAM DATE: ORDERING PHYSICIAN: MELY SANDOVAL TECHNOLOGIST: HC Test Reason : FALL, syncope Blood Pressure : / mmHG Vent. Rate : 111 BPM Atrial Rate : 100 BPM P-R Int : 000 ms QRS Dur : 076 ms QT Int : 348 ms P-R-T Axes : 000 005 021 degrees QTc Int : 473 ms Atrial fibrillation with premature ventricular or aberrantly conducted complexes Nonspecific ST abnormality Abnormal ECG Confirmed by TESSA TOM ([id number]) on 07/09/2019 11:10:20 PM Referred By: LORI Confirmed By:TESSA TOM
[2019-07-09] MEDS ORDERED: ACETAMINOPHEN 325 MG TAB PO ONE (23:25)
[2019-07-09 23:45] VITALS: BP 120/88
[2019-07-10] MEDS ORDERED: INFLUENZA VIRUS VAC 0.5ML SYR IM ONLY ONE (00:35)
[2019-07-10] MEDS ORDERED: methylPREDNIS SUCC 125 MG/2ML IVP ONE (00:50)
--- NOTE | 2019-07-10 00:58 | History & Physical ---
History of Present Illness Chief Complaint Fall History of Present Illness 79yo male with extensive PMHx including scleroderma, advanced pulmonary fibrosis, a-fib, severe pulmonary HTN, hypothyroidism. He reports increasing dyspnea on exertion over the past several months. He has noted less tolerance of even low levels of activity. He has not had any fevers/chills, sputum, wheezing, CP, edema. He does have chronic urinary urgency and has had multiple UTIs in the past. This evening he arose from bed and started to walk past the edge of the ed when he fell. "I think I must have passed out". He does not recall anything other than dyspnea. He believes he had his oxygen on, but is unsure. His family heard his fall and came to check on him. His daughter reports he was confused. He was able to arise, but could not ambulate due to right ankle pain. He was brought to the [facility] ER for evaluation. He was found to be significantly hypoxic even with O2 on. His WBC count was elevated. His CXR shows prominent fibrotic changes throughout, but especially in the bases. His UA does show pyuria. His lactate was elevated. He is in chronic a-fib on EKG. He has right distal fibular fracture (and possible medial malleolus). He was recommended for admission. History Problems: (1) Atrial fibrillation, chronic Status: Chronic (2) GERD (gastroesophageal reflux disease) Status: Chronic (3) Benign hypertension Status: Chronic (4) Hypothyroidism Status: Chronic (5) History of prostate cancer Status: Chronic (6) CKD (chronic kidney disease) Status: Chronic (7) UTI (urinary tract infection) Status: Resolved (8) Pulmonary hypertension Status: Chronic (9) ILD (interstitial lung disease) Status: Chronic (10) Diffuse systemic sclerosis Status: Chronic (11) Small bowel obstruction Status: Resolved Home Meds Active Scripts Magnesium Oxide (MAGNESIUM OXIDE) 500 Mg Tablet, 500 MG PO DIRECTED, #30 2 in am 2 at noon 2 at night Prov:SAMREEN DE LA TORRE MD 04/11/19 Reported Medications Losartan Potassium (LOSARTAN POTASSIUM) 50 Mg Tablet, 0.5 TAB PO QDAY 03/28/19 Amiloride Hcl (AMILORIDE HCL) 5 Mg Tablet, 1 TAB PO QDAY 03/28/19 Omeprazole (OMEPRAZOLE) 40 Mg Capsule., 1 TAB PO QDAY 03/28/19 Metoprolol Succinate (METOPROLOL SUCCINATE) 50 Mg Tab.er.24h, 50 MG PO QDAY 03/28/19 Atorvastatin Calcium (ATORVASTATIN CALCIUM) 40 Mg Tablet, 40 MG PO QDAY 03/28/19 Levothyroxine Sodium (LEVOXYL) 112 Mcg Tablet, 1 TAB PO QDAY 03/28/19 Mycophenolate Mofetil (MYCOPHENOLATE MOFETIL) 250 Mg Capsule, 750 CAP PO BID 03/28/19 Aspirin (ADULT LOW DOSE ASPIRIN EC) 81 Mg Tablet.dr, 1 TAB PO QAM, 0 Refills 05/09/13 Discontinued Reported Medications Amlodipine Besylate (AMLODIPINE BESYLATE) 5 Mg Tablet, 1 TAB PO QDAY 03/28/19 Allergies: Coded Allergies: rivaroxaban (Unverified Allergy, Unknown, 09/16/15) Patient History: FH: defects BROTHER OR SISTER FH: diabetes mellitus MOTHER, , Age:60 FH: heart disease FATHER, , Age:73 FH: lupus MOTHER, , Age:60 FHx: stroke BROTHER OR SISTER Other 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 Hx Smoking: Yes Smoking Status: Former Smoker Caffeine Intake: Coffee Caffeine/Cups Per Day: 1 cup Hx Alcohol Use: Yes Alcohol Used: Beer, Liquor Hx Substance Use Disorder: No Review of Systems Constitutional: No Fever, No Chills Neurological: Syncope, Confusion, Weakness Eyes: No Vision Change, No Loss of Vision ENT: No Hearing Loss Cardiovascular: No Chest Pain, No Palpitations Respiratory: Shortness of Breath; No Cough, No Wheezing Gastrointestinal: No Nausea, No Vomiting, No Diarrhea, No Hematemesis, No Hematochezia, No Melena, No Abdominal Pain Genitourinary: Other (urgency); No Dysuria Musculoskeletal: Pain, Impaired Mobility Exam Vital Signs Vital Signs Date Time Temp Pulse Resp B/P (MAP) Pulse Ox O2 Delivery O2 Flow Rate FiO2 07/10/19 00:00 88 Non-Rebreather 15.0 07/09/19 23:45 98.4 113 18 120/88 (99) General Appearance: Alert, Awake Neuro: No Gross deficits Eyes: PERRLA ENT: Oropharynx Clear Neck: No Masses Cardiovascular: Other (Irregular with soft systolic murmur) Respiratory: Other (fine rales throughout both lung treviño - most prominent in the bases) Chest: No Tenderness GI: Abd Soft and Non-Tender : No CVA Tenderness Musculoskeletal: Other (some sclerodactyly changes in hands less in feet) Extremities: Warm, Perfused, Other (RLE is in a boot) Psych: Alert & Oriented X3 Medical Decision Making Data Points Result Diagram: 07/09/19205407/09/192054 Item Value Date Time Albumin 4.2 g/dl 07/09/192054 Total Protein 7.1 g/dl 07/09/192054 Troponin I < 0.012 ng/ml 07/09/192054 Alkaline Phosphatase 89 U/L 07/09/192054 Aspartate Amino Transf (AST/SGOT) 44 U/L H 07/09/192054 Alanine Aminotransferase (ALT/SGPT) 29 U/L 07/09/192054 Total Bilirubin 0.7 mg/dl 07/09/192054 B-Type Natriuretic Peptide 864 pg/ml H 07/09/192054 Calcium Level 9.3 mg/dl 07/09/192054 Lactate 6.8 mmol/L *H 07/09/192054 Urine Mucus None /HPF 07/09/192257 Urine Bacteria Few /HPF 07/09/198 Urine Hyaline Casts Few /LPF 07/09/19 2258 Urine Squamous Epithelial Cells None /LPF 07/09/192257 Urine WBC 41 /HPF 07/09/198 Urine RBC 2 /HPF 07/09/192257 Urine Leukocyte Esterase Moderate H 07/09/192257 Urine Urobilinogen Negative mg/dL 07/09/192257 Urine Bilirubin Negative 07/09/192257 Urine Nitrite Negative 07/09/198 Urine Blood Small 07/09/192257 Urine Ketones Negative mg/dL 07/09/192257 Urine Glucose (UA) Negative mg/dL 07/09/192257 Urine Protein Negative mg/dL 07/09/192257 Urine Specific [place] 1.017 07/09/192257 Urine pH 5.0 pH 07/09/192257 Urine Clarity Slightly-cloudy 07/09/192257 Urine Color Yellow 07/09/192257 Oxygen Liters/Minute 12 lpm 07/09/19 0000 John Test Acceptable 07/09/19 0000 Arterial Blood Base Excess 1.0 mmol/L 07/09/19 Arterial Blood Oxygen Saturation 83 % L 07/09/19 Arterial Blood HCO3 26 mmol/L 07/09/19 Arterial Blood Partial Pressure O2 47 mmHg *L 07/09/19 Arterial Blood Partial Pressure CO2 41 mmHg H 07/09/19 Arterial Blood pH 7.40 07/09/19 Blood Gas Patient Temperature 98 DEGREES 07/09/19 Blood Gas Puncture Site Left radial 07/09/19 EKG / Imaging EKG Interpretation PATIENT NAME: EDWARD GLOVER : [id number] MR: [id number] V: [id number] EXAM DATE: ORDERING PHYSICIAN: MELY SANDOVAL TECHNOLOGIST: Test Reason : FALL, syncope Blood Pressure : / mmHG Vent. Rate : 111 BPM Atrial Rate : 100 BPM P-R Int : 000 ms QRS Dur : 076 ms QT Int : 348 ms P-R-T Axes : 000 005 021 degrees QTc Int : 473 ms Atrial fibrillation with premature ventricular or aberrantly conducted complexes Nonspecific ST abnormality Abnormal ECG Confirmed by TESSA TOM ([id number]) on 07/09/2019 11:10:20 PM Referred By: LORI Confirmed By:TESSA TOM Imaging PATIENT NAME: Edward Glover : 1940 MR: [id number] V: [id number] EXAM DATE: [id number] ORDERING PHYSICIAN: MELY SANDOVAL TECHNOLOGIST: Location: [facility] - [place] Patient: Edward Glover : 1940 Visit/Account:[id number] Date of Sevice: 07/09/2019 EXAMINATION: Portable AP Chest HISTORY: Syncope. Hypoxia. COMPARISON: CT chest 01/21/2019. FINDINGS: Low lung volumes. There are advanced chronic fibrotic changes throughout both lungs, similar to the prior CT. It would be difficult to exclude a region of acute infiltrate in the mid and lower lungs. No confluent consolidation. No pleural effusion or pneumothorax. Normal cardiomediastinal silhouette. Visualized osseous structures appear intact. IMPRESSION: 1. Advanced pulmonary fibrosis, similar to the prior CT. 2. It would be difficult to exclude a region of superimposed infiltrate. If clinically indicated follow-up CT could be performed. Report Dictated By: Bentley Romero MD at 07/09/2019 9:59 PM Report E-Signed By: Bentley Romero MD at 07/09/2019 10:02 PM WSN:[id number] PATIENT NAME: Edward Glover : 1940 MR: [id number] V: [id number] EXAM DATE: [id number] ORDERING PHYSICIAN: MELY SANDOVAL TECHNOLOGIST: Location: [facility] - [place] Patient: Edward Glover : 1940 Visit/Account:[id number] Date of Sevice: 07/09/2019 INDICATION: fall swollen r/o Fx EXAM DATE: 07/09/2019 9:20 PM COMPARISON: None. FINDINGS: 3 views right ankle. Mineralization is lobe. There is a nondisplaced obliquely oriented fracture distal fracture of the fibula extending to the level of the ankle mortise. Question nondisplaced distal fracture of the medial malleolus. There is soft tissue swelling about the ankle. Multifocal moderate to severe arthrosis. IMPRESSION: Nondisplaced distal fibular fracture and possible nondisplaced distal medial malleolus fracture of the right ankle with surrounding soft tissue swelling. Report Dictated By: Gucci Garcia MD at 07/09/2019 10:05 PM Report E-Signed By: Gucci Garcia MD at 07/09/2019 10:13 PM WSN:[id number] PATIENT NAME: Edward Glover : 1940 MR: [id number] V: [id number] EXAM DATE: [id number] ORDERING PHYSICIAN: MELY SANDOVAL TECHNOLOGIST: Location: [facility] - [place] Patient: Edward Glover : 1940 Visit/Account:[id number] Date of Sevice: 07/09/[address] scan without contrast COMPARISONS: None ADDITIONAL PERTINENT HISTORY: Confusion TECHNIQUE: Multiple axial images were obtained from the skull base to the vertex without IV contrast. One of the following dose optimization techniques was utilized in the performance of this exam: Automated exposure control; adjustment of the mA and/or kV according to the patient's size; or use of an iterative reconstruction technique. Specific details can be referenced in the facility's radiology CT exam operational policy. FINDINGS: Midline shift: Negative Ventricles: Mild enlargement of the lateral and third ventricles. Brain parenchyma: Patchy hypoattenuation within the periventricular and subcortical white matter, nonspecific but likely representing small vessel ischemic change on a chronic basis. No intraparenchymal hemorrhage or mass effect. Extra-axial spaces: Moderate cerebral atrophy. Intracranial vasculature: Cavernous internal carotid and distal vertebral artery calcifications. Osseous structures: Negative Paranasal sinuses and mastoid air cells: Small nasal polyp involving the posterior right nasal cavity. Mild mucosal thickening involving the ethmoid air cells and both maxillary sinuses. Surrounding soft tissues and orbits: Negative IMPRESSION: 1. Age related changes as described above. 2. No evidence of acute intracranial pathology. Report Dictated By: Charles Gann MD at 07/09/2019 10:26 PM Report E-Signed By: Charles Gann MD at 07/09/2019 10:29 PM WSN:[id number] Assessment and Plan Problems: (1) Syncope Status: Acute Assessment & Plan: This could be multifactorial including acute infection, hypoxia related to his chronic lung disease, a-fib, pulmonary HTN. Will place on telemetry. Will treat potential infectious causes. Try to oxygenate as best we can. He has deemed himself DNR/DNI. Watch closely. (2) UTI (urinary tract infection) Status: Resolved Assessment & Plan: It appears he may have a recurrent UTI. In the past he has had fairly resistant E. coli, so will place on IV Zosyn. Await culture results. (3) Hypothyroidism Status: Chronic Assessment & Plan: Continue replacement therapy. Check TSH if it hasn't been done recently. (4) Pulmonary hypertension Status: Chronic Assessment & Plan: Severe. Most likely related to his advanced lung disease. (5) ILD (interstitial lung disease) Status: Chronic Assessment & Plan: Severe pulmonary fibrosis. It is difficult to evaluate his lung treviño on plain x-rays. Will need to check CT scan. Will continue his CellCept for now and give a pulse of steroids. (6) Diffuse systemic sclerosis Status: Chronic Assessment & Plan: He has been managed with CellCept 750mg PO BID. No changes at this time. (7) GERD (gastroesophageal reflux disease) Status: Chronic Assessment & Plan: Will place on Protonix while he is here. (8) Atrial fibrillation, chronic Status: Chronic Assessment & Plan: He has been managed with metoprolol for rate control. He has not been on anticoagulation therapy other than aspirin. He had an adverse reaction to Xarelto. (9) CKD (chronic kidney disease) Status: Chronic Assessment & Plan: Mild. His creatinine at the time of admission is 1.2 and baseline appears to be around 1.5. (10) Closed right fibular fracture Status: Acute Assessment & Plan: was consulted by the ER staff. He reported this would not be a surgical case and recommended a boot and toe touch weight bearing. Will have PT/OT see him. Copies to: SAMREEN DE LA TORRE MD ; Venous Thromboembolism Antithrombotics Is Pt On Any Antithrombotics?: Yes Exam Sepsis Risk: No Definite Risk Problem Qualifiers (1) Syncope: Syncope type: unspecified Qualified Codes: R55 - Syncope and collapse (2) Closed right fibular fracture: Encounter type: initial encounter Fibula location: distal Fracture morphology: unspecified fracture morphology Qualified Codes: S82.831A - Other fracture of upper and lower end of right fibula, initial encounter for closed fracture TESSA TOM MD Jul 10, 2019 00:58
[2019-07-10] MEDS: NS(*) 0.9% 1000 ML BAG 1,000 ML IV PRN (01:15)
[2019-07-10] MEDS: PIPERACILLIN/TAZO*3.375GM VIAL 3.375 GM in NS(*) 0.9% 100 ML MINI-BAG 100 ML IVPB SCH ×5 (01:34→23:23)
[2019-07-10 02:47] VITALS: BP 101/57
[2019-07-10 05:52] LABS: PLATELET COUNT, AUTOMATED 239 K/uL (150-450)
[2019-07-10 07:45] VITALS: BP 108/95
[2019-07-10] MEDS: PATIENT'S OWN MED PO SCH ×2 (09:00→20:32)
[2019-07-10] MEDS: SERTRALINE HCL 50 MG TAB PO SCH ×2 (09:00→10:28)
--- NOTE | 2019-07-10 10:18 | Hospitalist Progress Note ---
Subjective Progress Notes Subjective The patient denies new complaints. He remains short of breath with any exertion. The patient notes he has been sad lately as he knows he is at the end of his life. The patient's believes he would benefit from an antidepressant. Physical Exam Vital Signs Date Time Temp Pulse Resp B/P (MAP) Pulse Ox O2 Delivery O2 Flow Rate FiO2 07/10/19 08:44 High-Flow Nasal Cannula 10.0 07/10/19 07:53 107 07/10/19 07:45 96.5 108/95 (99) 91 07/10/19 02:47 20 Intake and Output 07/10/19 07:03 Intake Total 750 ml Output Total 290 ml Balance 460 ml Intake IV Total 750 ml Output Urine Total 290 ml General Appearance: Alert, Awake, No Acute Distress, Other (Face on skin appears stretched and tight.) Neuro: No Gross deficits Cardiovascular: No Edema, Other (Tachycardic, irregularly irregular.) Respiratory: Other (Fine crackles L lower lung field (lower 1/2) and right lung field (lower 3/4). Some scattered wheezes heard as well. 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 ) Psych: Alert & Oriented X3, Appropriate Mood & Affect Result Diagram: 07/10/19 0534 07/10/19 05 Item Value Date Time Lactate 2.3 mmol/L H 07/10/19 0534 Calcium Level 8.9 mg/dl 07/10/19 0534 Total Bilirubin 0.9 mg/dl 07/10/19 0534 Aspartate Amino Transf (AST/SGOT) 28 U/L 07/10/19 0534 Alanine Aminotransferase (ALT/SGPT) 31 U/L 07/10/19 0534 Alkaline Phosphatase 81 U/L 07/10/19 0534 Total Protein 6.1 g/dl L 07/10/19 0534 Albumin 3.5 g/dl 07/10/19 0534 Troponin I 0.013 ng/ml 07/10/19 0534 B-Type Natriuretic Peptide 864 pg/ml H 07/09/192054 Assessment and Plan Problems: (1) Syncope Status: Acute Assessment & Plan: This could be multifactorial including acute infection, hypoxia related to his chronic lung disease, a-fib, pulmonary HTN. Will place on telemetry. Will treat potential infectious causes. Chest CT shows some mild worsening of underlying disease, but no acute infiltrate. UA does show pyuria and culture is pending. Try to oxygenate as best we can. He has deemed himself DNR/DNI. Watch closely. (2) UTI (urinary tract infection) Status: Resolved Assessment & Plan: It appears he may have a recurrent UTI. In the past he has h ad fairly resistant E. coli, so will place on IV Zosyn. Await culture results. (3) Hypothyroidism Status: Chronic Assessment & Plan: Continue replacement therapy. Check TSH if it hasn't been done recently. (4) Pulmonary hypertension Status: Chronic Assessment & Plan: Severe. Most likely related to his advanced lung disease. (5) ILD (interstitial lung disease) Status: Chronic Assessment & Plan: Severe pulmonary fibrosis. It is difficult to evaluate his lung treviño on plain x-rays. CT scan does show mild progression. Will continue his CellCept for now and give a pulse of steroids. (6) Diffuse systemic sclerosis Status: Chronic Assessment & Plan: He has been managed with CellCept 750mg PO BID. No changes at this time. (7) GERD (gastroesophageal reflux disease) Status: Chronic Assessment & Plan: Will place on Protonix while he is here. (8) Atrial fibrillation, chronic Status: Chronic Assessment & Plan: He has been managed with metoprolol for rate control. He has not been on anticoagulation therapy other than aspirin. He had an adverse reaction to Xarelto. (9) CKD (chronic kidney disease) Status: Chronic Assessment & Plan: Mild. His creatinine at the time of admission is 1.2 and baseline appears to be around 1.5. (10) Closed right fibular fracture Status: Acute Assessment & Plan: was consulted by the ER staff. He reported this would not be a surgical case and recommended a boot and toe touch weight bearing. Will have PT/OT see him. (11) Dysphoric mood Status: Chronic Assessment & Plan: Will start Zoloft 50mg and monitor. Time Spent on Plan of Care: < 30 min Exam Sepsis Risk: Severe Sepsis Risk Problem Qualifiers (1) Syncope: Syncope type: unspecified Qualified Codes: R55 - Syncope and collapse (2) Closed right fibular fracture: Encounter type: initial encounter Fibula location: distal Fracture morphology: unspecified fracture morphology Qualified Codes: S82.831A - Other fracture of upper and lower end of right fibula, initial encounter for closed fracture JESSICA TOM MD Jul 10, 2019 10:18
--- NOTE | 2019-07-10 10:26 | RADIOLOGY IMAGING REPORT ---
FACILITY: [facility] PATIENT NAME: Edward Baez : 1940 MR: [id number] V: [id number] EXAM DATE: ORDERING PHYSICIAN: TESSA TOM TECHNOLOGIST: Location: [facility] Patient: Edward Baez : 1940 Visit/Account:[id number] Date of Sevice: 07/10/2019 CT CHEST W/O CONTRAST History: 79-year-old male with interstitial lung disease. Technique: Thin axial CT images were obtained through the chest without the injection of intravenous contrast. Coronal and sagittal reformations were then created. One of the following dose optimization techniques was utilized in the performance of this exam: Autom ated exposure control; adjustment of the mA and/or kV according to the patient's size; or use of an i terative reconstruction technique. Specific details can be referenced in the facility's radiology C T exam operational policy. Comparison: CT chest January 21, 2019. Findings: Lower neck: There is no supraclavicular lymphadenopathy. Thyroid gland/mediastinum/hilum/lymph nodes: Thyroid gland is unremarkable. There is again noted to b e lymphadenopathy in the right paratracheal region and anterior mediastinum. There are lymph nodes in the aorticopulmonary regions. The largest lymph node in this region measures 3.2 x 1.6 cm in size. I t may be slightly more prominent than was noted on the prior exam. There is precarinal and right hilar lymphadenopathy. The largest lymph node in the right carl measure s 2.2 x 2.2 cm in size. There is subcarinal lymphadenopathy. The largest lymph node in the subcarinal region measures 2.5 x 1.8 cm in size. There is no axillary lymphadenopathy. In the left hilum there are small lymph nodes. In general the lymph nodes are more prominent now than they were on prior exams. Heart and pericardium: The heart is enlarged due to multichamber enlargement. There is significant th ree-vessel coronary calcification. There is calcification in the mitral valve annulus. No pericardial effusion. Prominence the central pulmonary vessels is noted. Lungs/pleura: Again noted are findings of diffuse coarse interstitial lung disease, but the findings have progressed when compared to prior studies. There is now cystic change in the lung bases suggesti ve of traction bronchiectasis or honeycombing. The changes also involve the periphery of the lung fie lds. There is residual groundglass density but it may not be as prominent as is been noted on prior e xams. The findings are suggestive of UIP or interstitial pulmonary fibrosis. Bones/soft tissues: No vertebral body compression fracture seen. Upper abdomen: There is very prominent vascular calcification. There is no gallstone disease. There i s no hydronephrosis. IMPRESSION: 1. Comparison to the previous study shows that there has been progression of interstitial lung diseas e. There are chronic findings of cystic change suggesting traction bronchiectasis. There is residual groundglass density. There is no discrete infiltrate. The findings are consistent with the patient's known long-standing scleroderma. 2. There has been progression of previously noted mediastinal, hilar and paratracheal lymphadenopathy . All these lymph nodes have slightly increased in size. For example a lymph node in the left paratra cheal region now measures 3.2 x 1.6 cm in size which is slightly larger than was noted on the prior e xam. A right hilar lymph node now measures 2.2 x 2.2 cm in size which is also slightly larger. There are also pretracheal and subcarinal as well as right paratracheal lymph nodes that are prominent. The re etiology is uncertain. It could be reactive to the aforementioned process. 3. Cardiomegaly with significant three-vessel coronary calcification. Results were called to TESSA TOM M.D. At 07/10/2019 10:19 AM. Report Dictated By: Mac Mark MD at 07/10/2019 9:29 AM Report E-Signed By: Mac Mark MD at 07/10/2019 10:19 AM WSN:[id number]
[2019-07-10] MEDS: ASPIRIN 81 MG ENTERIC COATED PO SCH (10:28)
[2019-07-10] MEDS: methylPREDNIS SUCC 125 MG/2ML IVP SCH ×2 (10:28→20:28)
[2019-07-10] MEDS: PANTOPRAZOLE SOD 40 MG TABEC PO SCH (10:28)
[2019-07-10] MEDS: ENOXAPARIN 40 MG/0.4ML SYR SC SCH (10:29)
[2019-07-10] MEDS: LEVOTHYROXINE SOD 0.112 MG TAB PO SCH (10:29)
[2019-07-10] MEDS: METOPROLOL SUCC XL 50 MG TABCR 50 MG TAB.ER.24H PO SCH (10:38)
[2019-07-10 11:02] VITALS: BP 108/95
[2019-07-10 16:13] VITALS: BP 125/89
[2019-07-10 18:51] VITALS: BP 136/102
[2019-07-10 23:20] VITALS: BP 131/95
[2019-07-11] MEDS: NS(*) 0.9% 1000 ML BAG 1,000 ML IV PRN ×2 (02:19→17:21)
[2019-07-11 03:47] VITALS: BP 134/94
--- NOTE | 2019-07-11 04:02 | NUR ---
He Frequently removes his O2, and desats to the mid 70's quickly. When he does this with frequency, he becomes confused and removes the O2 more. At one point he had removed the O2 and his pulse ox, When the nurse entered the room he was pale/cyanotic, with a blank stare, and unable to speak. He improved quickly once O2 was reapplied. His mentation has gotten worse through The night. He has begun yelling out, complaining that he is hanging out of the bed, and we wont let him sleep.
[2019-07-11] MEDS: PIPERACILLIN/TAZO*3.375GM VIAL 3.375 GM in NS(*) 0.9% 100 ML MINI-BAG 100 ML IVPB SCH (05:34)
[2019-07-11 05:58] LABS: PLATELET COUNT, AUTOMATED 195 K/uL (150-450)
[2019-07-11 07:01] VITALS: BP 132/83
--- NOTE | 2019-07-11 08:50 | NUR ---
Physical Therapy Impression PT/OT co eval complete. Pt on 15L O2 via non-rebreather mask at rest. Hospitalist reports pt is ok to mobilize at this time. Pt requires Facundo for supine to sit, with assist at R) LE to maintain TTWB with boot in place. Once sitting at EOB, pt requires 5 min to "catch his breath" -- no SpO2 signal available throughout session d/t difficulty with sensor (this is problem throughout his admission). Pt requires modA x2 for stand pivot transfer with RW to chair, with cues for WB status. Pt with difficulty maintaining TTWB on R) LE. Once in chair, pt required increased time to recover, while still on 15L O2. RN and hospitalist notified. Rec LT rehab/placement. Rec use of EZ lift with staff at this time. Physical Therapy Goals 1: Pt to complete bed mobility with Facundo 2: Pt to complete pivot transfers with Facundo and RW 3: Pt to maintain TTWB with all mobility. Patient's Goals
--- NOTE | 2019-07-11 09:16 | EKG ---
FACILITY: [facility] [place] PATIENT NAME: CLARISA GLOVER : [id number] MR: [id number] V: [id number] EXAM DATE: ORDERING PHYSICIAN: TIMBO CHENEY TECHNOLOGIST: Test Reason : AFIB Blood Pressure : / mmHG Vent. Rate : 107 BPM Atrial Rate : 127 BPM P-R Int : 000 ms QRS Dur : 090 ms QT Int : 346 ms P-R-T Axes : 000 009 043 degrees QTc Int : 461 ms Atrial fibrillation with rapid ventricular response with premature ventricular or aberrantly conducte d complexes Low voltage QRS Abnormal ECG When compared with ECG of 07.09.2019 No significant change was found Confirmed by Timbo Echevarria ([id number]) on 07/11/2019 7:25:36 PM Referred By: Confirmed By:Timbo Cheney
[2019-07-11] MEDS: LEVOTHYROXINE SOD 0.112 MG TAB PO SCH (09:44)
[2019-07-11] MEDS: PANTOPRAZOLE SOD 40 MG TABEC PO SCH (09:45)
[2019-07-11] MEDS: ASPIRIN 81 MG ENTERIC COATED PO SCH (09:45)
[2019-07-11] MEDS: SERTRALINE HCL 50 MG TAB PO SCH (09:45)
[2019-07-11] MEDS: METOPROLOL SUCC XL 50 MG TABCR 50 MG TAB.ER.24H PO SCH (09:45)
[2019-07-11] MEDS: PATIENT'S OWN MED PO SCH (09:46)
[2019-07-11] MEDS: methylPREDNIS SUCC 125 MG/2ML IVP SCH ×2 (09:46→21:41)
[2019-07-11] MEDS: ENOXAPARIN 40 MG/0.4ML SYR SC SCH (09:51)
[2019-07-11 10:56] VITALS: BP 145/85
[2019-07-11] MEDS ORDERED: cefTRIAXone 1 GM VIAL IVP SCH ×3 (11:00→13:05)
--- NOTE | 2019-07-11 11:38 | NUR ---
Occupational Therapy Impression Co- evaluation with PT. Pt. would benefit from OT services 5x/week to increase independence in ADL's. Occupational Therapy Goals 1. Pt. to perform toileting activities with Max A. 2. Pt. to perform showering activities with Max A. 3. Pt. to perform dressing activities with Max A. 4. Pt. to perform grooming activities with RIVER. Patient's Goal
[2019-07-11] MEDS ORDERED: LUTE6CAP11 PO (14:02)
[2019-07-11] MEDS ORDERED: OMEG-11 PO (14:02)
--- NOTE | 2019-07-11 14:58 | Hospitalist Progress Note ---
Subjective Progress Notes Subjective Episode of tachycardia this am after 2/2 Pt removing O2 while trying to eat. Resolved with O2, he does periodically endorse SOB even on O2. Discussed that this appears to be progression of disease and prognosis is poor at approximately 6 months. Patient Complains of: Respiratory: Shortness of Breath Gastrointestinal: No Nausea, No Vomiting Physical Exam Vital Signs Date Time Temp Pulse Resp B/P (MAP) Pulse Ox O2 Delivery O2 Flow Rate FiO2 07/11/19 10:56 97.7 94 24 145/85 (105) 91 Non-Rebreather 15.0 Intake and Output 07/11/19 07:03 Intake Total 1780 ml Output Total 1040 ml Balance 740 ml Intake Oral 480 ml IV Total 1300 ml Output Urine Total 1040 ml # Voids 2 # Bowel Movements 1 General Appearance: Awake, No Acute Distress, Afebrile Neuro: No Gross deficits Cardiovascular: Other (irregularly irregular) Respiratory: Clear to Auscultation (10L supplemental O2) Musculoskeletal: Other (skin tightening BL hands,) Result Diagram: 07/11/19 0456 07/11/19 0456 Assessment and Plan Problems: (1) Syncope Status: Acute Assessment & Plan: Secondary to Hypoxia related to his chronic lung disease, a- fib, pulmonary HTN. Chest CT shows some mild worsening of underlying disease, but no acute infiltrate. UA does show pyuria and culture is pending. He has deemed himself DNR/DNI. (2) UTI (urinary tract infection) Status: Resolved Assessment & Plan: It appears he may have a recurrent UTI. In the past he has had fairly resistant E. coli, so will place on IV Ceftriaxone. Await culture results. (3) Hypothyroidism Status: Chronic Assessment & Plan: Continue replacement therapy. (4) Pulmonary hypertension Status: Chronic Assessment & Plan: Severe, secondary to his advanced lung disease. Prognosis is very poor. (5) ILD (interstitial lung disease) Status: Chronic Assessment & Plan: Severe pulmonary fibrosis. It is difficult to evaluate his lung treviño on plain x-rays. CT scan does show mild progression. Will continue his CellCept for now and give a pulse of steroids. Discussed with patient that this is progression of his disease and with the recent O2 increases recommend hospice consultation to discuss end of life care. He has agreed to meet with hospice but continues to endorse that it isn't time for it yet. Continue end of life discussions. (6) Diffuse systemic sclerosis Status: Chronic Assessment & Plan: He has been managed with CellCept 750mg PO BID. No changes at this time. (7) GERD (gastroesophageal reflux disease) Status: Chronic Assessment & Plan: Will place on Protonix while he is here. (8) Atrial fibrillation, chronic Status: Chronic Assessment & Plan: He has been managed with metoprolol for rate control. He has not been on anticoagulation therapy other than aspirin. He had an adverse reaction to Xarelto. (9) CKD (chronic kidney disease) Status: Chronic Assessment & Plan: Mild. His creatinine at the time of admission is 1.2 and baseline appears to be around 1.5. (10) Closed right fibular fracture Status: Acute Assessment & Plan: was consulted by the ER staff. He reported this would not be a surgical case and recommended a boot and toe touch weight bearing. Will have PT/OT see him. Unfortunately given his end stage lung disease he is unable to ambulate on crutches or other means. Will write script for transfer chair for patient family to use to help move him around at home. (11) Dysphoric mood Status: Chronic Assessment & Plan: Will start Zoloft 50mg and monitor. Exam Sepsis Risk: No Definite Risk Problem Qualifiers (1) Syncope: Syncope type: unspecified Qualified Codes: R55 - Syncope and collapse (2) Closed right fibular fracture: Encounter type: initial encounter Fibula location: distal Fracture morphology: unspecified fracture morphology Qualified Codes: S82.831A - Other fracture of upper and lower end of right fibula, initial encounter for closed fracture TIMBO CHOUDHARY DO Jul 11, 2019 14:58
[2019-07-11 15:48] VITALS: BP 145/95
--- NOTE | 2019-07-11 19:46 | NUR ---
He had removed his pulse ox and O2 and attempted to transfer himself from the recliner to the bed. I entered the room to find him half in the bed, cyanotic, paniced stare, not able to speak, taking shallow gasping breaths. I applied O2, got him in the bed, then applied a non-rebreather at 15L. within a few minutes, he had returned to normal color, and could speak. I reminded him not to get up by himself, and not remove his oxygen. "I thought I could do it," he replied. Bed alarm turned on, he is currently back on 8L HF NC.
[2019-07-11 19:59] VITALS: BP 150/104
[2019-07-11] MEDS: MYCOPHENOLATE MOFETIL 250 MG CAP PO SCH (21:41)
[2019-07-11 23:33] VITALS: BP 148/104
[2019-07-12 03:59] VITALS: BP 156/107
[2019-07-12 07:27] VITALS: BP 149/102
[2019-07-12] MEDS: NS(*) 0.9% 1000 ML BAG 1,000 ML IV PRN (08:03)
[2019-07-12] MEDS: PANTOPRAZOLE SOD 40 MG TABEC PO SCH (08:45)
[2019-07-12] MEDS: SERTRALINE HCL 50 MG TAB PO SCH (08:45)
[2019-07-12] MEDS: MYCOPHENOLATE MOFETIL 250 MG CAP PO SCH ×2 (08:45→20:32)
[2019-07-12] MEDS: ASPIRIN 81 MG ENTERIC COATED PO SCH (08:45)
[2019-07-12] MEDS: METOPROLOL SUCC XL 50 MG TABCR 50 MG TAB.ER.24H PO SCH (08:45)
[2019-07-12] MEDS: LEVOTHYROXINE SOD 0.112 MG TAB PO SCH (08:45)
[2019-07-12] MEDS: methylPREDNIS SUCC 125 MG/2ML IVP SCH (08:46)
[2019-07-12] MEDS: ENOXAPARIN 40 MG/0.4ML SYR SC SCH (08:47)
--- NOTE | 2019-07-12 10:44 | Antimicrobial Stewardship ---
Antimicrobial Time Out Antimicrobial Stewardship MD Service: Hospitalist Indications: UTI Antimicrobial Used Zosyn started on 07/10 and then changed to Rocephin on 07/11. Culture Results: Yes (Preliminary urine cx shows gram negative rods with c and s to follow) JESSICA CERVANTES Jul 12, 2019 10:44
[2019-07-12 10:53] VITALS: BP 159/99
[2019-07-12] MEDS ORDERED: cefTRIAXone 1 GM VIAL IVP SCH ×3 (11:00→12:00)
[2019-07-12] MEDS ORDERED: cefTRIAXone(*) 1 GM VIAL 1 GM in WATER STERILE(*) 10 ML VIAL 10 ML IVP SCH (12:00)
--- NOTE | 2019-07-12 14:30 | NUR ---
Physical Therapy Impression PT/OT co-treat for pt safety and energy conservation with time split for billing purposes. Pt/CG indicate that they plan to go home with use of W/C for mobility and non-emergent ambulance transport to assist pt up the stairs into his home and remain on one level thereafter. PT clarified with Dr. Fuentes, recreation program specialist, regarding weight bearing for simple stand-pivot transfers. Pt has been cleared to be brief WBAT for these transfers and remains TTWB for any further increase in activity. Pt currently on 7 L/min of supplemental O2 and increased to 10 L/min to maintain sats >88% during simple stand pivot transfer skill trng. Min assist required to advance R) LE over to edge of bed. Pt/CG indicate their ability to complete this at home. Additionally, pt has been provided with information to obtain a half rail and wedge pillow to improve indep with transfers and potentially decrease strain of breathing with slightly reclined posture while sleeping. Pt able to reach for BSC with one hand and initiate movement to pivot to/from BSC while bearing weight only briefly on R) LE with pivot. Pt/CG educated on critical importance of maintaining appropriate O2 sats with increased exertion and increasing O2 as needed prior to anticipated transfers etc. Pt was able to be reduced back to 7 L/min, after use of 10 L/min during therapy, upon return to bed and proper rest break to regain normal breaths per minute. Physical Therapy Goals 1: Pt to complete bed mobility with Facundo 2: Pt to complete pivot transfers with Facundo and RW 3: Pt to maintain TTWB with all mobility. Patient's Goals
[2019-07-12 14:46] VITALS: BP 131/87
--- NOTE | 2019-07-12 16:23 | NUR ---
Occupational Therapy Impression PT/OT co-tx for pt safety. Time split for billing purposes. Min A bed mobility in/out with HOB raised. CGA stand step pivot with RW bed<>BSC. Max A jayson-care. SpO2 >90% on 7L at rest. SpO2 >90% on 10L with activity. Pt and spouse educated on titrating O2 with activity. AE recommendations provided, spouse verbalized understanding with plans to obtain. Pt plans to return home with w/c for mobility and assist from family for cares. Occupational Therapy Goals 1. Pt. to perform toileting activities with Max A. 2. Pt. to perform showering activities with Max A. 3. Pt. to perform dressing activities with Max A. 4. Pt. to perform grooming activities with RIVER. Patient's Goal
--- NOTE | 2019-07-12 16:55 | Hospitalist Progress Note ---
Subjective Progress Notes Subjective He reports feeling much better since admission. Less SOB. Physical Exam Vital Signs Date Time Temp Pulse Resp B/P (MAP) Pulse Ox O2 Delivery O2 Flow Rate FiO2 07/12/19 14:46 97.9 106 18 131/87 (102) 98 High-Flow Nasal Cannula 6.0 Intake and Output 07/12/19 07:03 Intake Total 240 ml Output Total 250 ml Balance -10 ml Intake Oral 240 ml Output Urine Total 250 ml # Voids 2 General Appearance: Alert, Awake, No Acute Distress Cardiovascular: Other (distant heart tones) Respiratory: Other (insp crackles in left base) Extremities: No Edema Result Diagram: 07/11/1945507/11/19455 Assessment and Plan Problems: (1) Syncope Status: Acute Assessment & Plan: Secondary to Hypoxia related to his chronic lung disease, a- fib, pulmonary HTN. Chest CT shows some mild worsening of underlying disease, but no acute infiltrate. UA does show pyuria and culture is pending. He has deemed himself DNR/DNI. (2) UTI (urinary tract infection) Status: Resolved Assessment & Plan: He had pyuria and an elevated WBC upon admission. The urine culture is growing a fairly sensitive E. Coli. He has been on ceftriaxone since admission. Will switch to Keflex. (3) ILD (interstitial lung disease) Status: Chronic Assessment & Plan: Severe pulmonary fibrosis. It is difficult to evaluate his lung treviño on plain x-rays. CT scan does show mild progression. Will continue his CellCept for now and was started on IV methylprednisolone. He is feeling better and requiring less O2. He is on 6-7 liters at rest and 10 liters with exertion. [facility] is prepared to supply the patient with the needed supplies to meet those O2 demands. Discussed with patient that this is progression of his disease and with the recent O2 increases recommend hospice consultation to discuss end of life care. He is going to go home with Hospice. (4) Closed right fibular fracture Status: Acute Assessment & Plan: was consulted by the ER staff. He reported this would not be a surgical case and recommended a boot and toe touch weight bearing. PT/OT are working with him. Unfortunately given his end stage lung disease he is unable to ambulate on crutches or other means. He is going to have the equipment needed to be at home on 07/14. (5) Hypothyroidism Status: Chronic Assessment & Plan: Continue replacement therapy. (6) Pulmonary hypertension Status: Chronic Assessment & Plan: Severe, secondary to his advanced lung disease. (7) Diffuse systemic sclerosis Status: Chronic Assessment & Plan: He has been managed with CellCept 750mg PO BID. No changes at this time. (8) GERD (gastroesophageal reflux disease) Status: Chronic Assessment & Plan: Will place on Protonix while he is here. (9) Atrial fibrillation, chronic Status: Chronic Assessment & Plan: He has been managed with metoprolol for rate control. He has not been on anticoagulation therapy other than aspirin. He had an adverse reaction to Xarelto. (10) CKD (chronic kidney disease) Status: Chronic Assessment & Plan: Mild. His creatinine at the time of admission is 1.2 and baseline appears to be around 1.5. (11) Dysphoric mood Status: Chronic Assessment & Plan: Will start Zoloft 50mg and monitor. Exam Sepsis Risk: No Definite Risk Problem Qualifiers (1) Syncope: Syncope type: unspecified Qualified Codes: R55 - Syncope and collapse (2) Closed right fibular fracture: Encounter type: initial encounter Fibula location: distal Fracture morphology: unspecified fracture morphology Qualified Codes: S82.831A - Other fracture of upper and lower end of right fibula, initial encounter for closed fracture LIGIA CANDELARIA MD Jul 12, 2019 16:55
[2019-07-12 19:58] VITALS: BP 153/104
[2019-07-12] MEDS: predniSONE 20 MG TAB PO SCH (20:32)
[2019-07-12 23:47] VITALS: BP 148/93
[2019-07-13] MEDS: NS(*) 0.9% 1000 ML BAG 1,000 ML IV PRN ×2 (02:03→19:07)
[2019-07-13 04:02] VITALS: BP 153/103
[2019-07-13 07:28] VITALS: BP 162/108
[2019-07-13] MEDS ORDERED: cefTRIAXone(*) 1 GM VIAL 1 GM in WATER STERILE(*) 10 ML VIAL 10 ML IVP SCH (09:00)
[2019-07-13] MEDS: LEVOTHYROXINE SOD 0.112 MG TAB PO SCH (09:48)
[2019-07-13] MEDS: METOPROLOL SUCC XL 50 MG TABCR 50 MG TAB.ER.24H PO SCH (09:48)
[2019-07-13] MEDS: ENOXAPARIN 40 MG/0.4ML SYR SC SCH (09:48)
[2019-07-13] MEDS: SERTRALINE HCL 50 MG TAB PO SCH (09:48)
[2019-07-13] MEDS: PANTOPRAZOLE SOD 40 MG TABEC PO SCH (09:49)
[2019-07-13] MEDS: CEPHALEXIN MONO 500 MG CAP PO SCH ×2 (09:49→20:34)
[2019-07-13] MEDS: ASPIRIN 81 MG ENTERIC COATED PO SCH (09:49)
[2019-07-13] MEDS: MYCOPHENOLATE MOFETIL 250 MG CAP PO SCH ×2 (09:50→20:34)
[2019-07-13] MEDS: predniSONE 20 MG TAB PO SCH ×2 (09:50→20:34)
--- NOTE | 2019-07-13 10:20 | NUR ---
Physical Therapy Impression Pt politely declines PT visit, indicating that he does not yet have the need to use the BSC and would like to conserve energy until he is ready. CG is agreeable to address transfer trng with pivot transfer to commode later this afternoon with OT when pt feels the need to void. Physical Therapy Goals (updated with ortho clarification) 1: Pt to complete bed mobility with Facundo 2: Pt to complete pivot transfers with Facundo and RW 3: Pt to maintain WBAT for brief stand-pivot transfers; TTWB for any ambulation or increased activity. Patient's Goals
--- NOTE | 2019-07-13 11:17 | Hospitalist Progress Note ---
Subjective Progress Notes Subjective He reports doing "Okay". O2 requirement has been in 5-6L range at rest and upwards of 10L with even very low levels of activity. Physical Exam Vital Signs Date Time Temp Pulse Resp B/P (MAP) Pulse Ox O2 Delivery O2 Flow Rate FiO2 07/13/19 10:29 98 High-Flow Nasal Cannula 5.0 07/13/19 07:28 97.7 88 16 162/108 (126) Intake and Output 07/13/19 07:04 Intake Total 3876 ml Output Total 720 ml Balance 3156 ml Intake Oral 590 ml IV Total 3286 ml Output Urine Total 720 ml General Appearance: Alert, Awake Cardiovascular: Other (Irregular with systolic murmur) Respiratory: Other (rales bilaterally) Extremities: Warm, Perfused, Other (RLE in boot) Result Diagram: 07/11/1945507/11/19455 Assessment and Plan Problems: (1) Syncope Status: Acute Assessment & Plan: Secondary to Hypoxia related to his chronic lung disease, a- fib, pulmonary HTN. Chest CT shows some mild worsening of underlying disease, but no acute infiltrate. UA did show pyuria and culture grew E. coli which is fairly sensitive. He has deemed himself DNR/DNI. (2) UTI (urinary tract infection) Status: Resolved Assessment & Plan: He had pyuria and an elevated WBC upon admission. The urine culture is growing a fairly sensitive E. Coli. He was initially placed on IV ceftriaxone. He was transitioned to oral Keflex. (3) ILD (interstitial lung disease) Status: Chronic Assessment & Plan: Severe pulmonary fibrosis. It is difficult to evaluate his lung treviño on plain x-rays. CT scan does show mild progression. We have continued his CellCept. He was started on IV methylprednisolone and transitioned to oral prednisone. He is feeling better and requiring less O2. He is on 6 liters at rest and 10 liters with exertion. [facility] is prepared to supply the patient with the needed supplies to meet those O2 demands. This appears to be progression of his disease and he seems to understand very well, as does his family. They wished to pursue Hospice-type care at home. They have been able to meet with [facility] and plan to go home with Hospice in next day or two. (4) Closed right fibular fracture Status: Acute Assessment & Plan: was consulted by the ER staff. He reported this would not be a surgical case and recommended a boot and toe touch weight bearing. PT/OT are working with him. Unfortunately, given his end stage lung disease he is unable to ambulate on crutches or other means. He is going to have the equipment needed to be at home very soon. (5) Hypothyroidism Status: Chronic Assessment & Plan: Continue replacement therapy. (6) Pulmonary hypertension Status: Chronic Assessment & Plan: Severe, secondary to his advanced lung disease. (7) Diffuse systemic sclerosis Status: Chronic Assessment & Plan: He has been managed with CellCept 750mg PO BID. No changes at this time. (8) GERD (gastroesophageal reflux disease) Status: Chronic Assessment & Plan: He is on Protonix while he is here. (9) Atrial fibrillation, chronic Status: Chronic Assessment & Plan: He has been managed with metoprolol for rate control. He has not been on anticoagulation therapy other than aspirin. He had an adverse reaction to Xarelto. (10) CKD (chronic kidney disease) Status: Chronic Assessment & Plan: Mild. His creatinine at the time of admission is 1.2 and baseline appears to be around 1.5. (11) Dysphoric mood Status: Chronic Assessment & Plan: He has been started on Zoloft 50mg daily. Exam Sepsis Risk: No Definite Risk Problem Qualifiers (1) Syncope: Syncope type: unspecified Qualified Codes: R55 - Syncope and collapse (2) Closed right fibular fracture: Encounter type: initial encounter Fibula location: distal Fracture morphology: unspecified fracture morphology Qualified Codes: S82.831A - Other fracture of upper and lower end of right fibula, initial encounter for closed fracture TESSA TOM MD Jul 13, 2019 11:17
--- NOTE | 2019-07-13 14:53 | NUR ---
Occupational Therapy Impression Pt alert, declined getting OOB and ADLs at this time. Spouse present and both agreeable to discussion regarding acquisition of AE. Spouse has purchased all AE and reports it should be delivered . Pt and spouse with no further questions/concerns for OT to address at this time. No further skilled OT needs at this time. Plan for discharge home with non-emergent ambulance. W/c for mobility and assist from family or private caregivers for all cares. Occupational Therapy Goals 1. Pt. to perform toileting activities with Max A. 2. Pt. to perform showering activities with Max A. 3. Pt. to perform dressing activities with Max A. 4. Pt. to perform grooming activities with RIVER. Patient's Goal
--- NOTE | 2019-07-13 15:00 | NUR ---
Occupational Therapy Impression Spouse present for education and practice for stand pivot transfers. Spouse engaged in education, appropriately assisting pt with bed mobility, stand pivot transfer bed<>BSC, and toileting (jayson-care). Spouse demonstrating improved carryover of education (i.e. not pulling on pt, use of gait belt etc.) Encouraged to have two assist present at home for transfers and ADLs. Pt and spouse verbalized understanding reporting daughter will assist as well. Spouse reports confidence with assist of pt and declined further education at this time. SpO2 >80% on 12L with activity. No further OT skilled indicated. Occupational Therapy Goals 1. Pt. to perform toileting activities with Max A. 2. Pt. to perform showering activities with Max A. 3. Pt. to perform dressing activities with Max A. 4. Pt. to perform grooming activities with RIVER. Patient's Goal
[2019-07-13] MEDS: ACETAMINOPHEN 325 MG TAB PO PRN ×2 (16:07→22:20)
[2019-07-13 19:26] VITALS: BP 159/96
[2019-07-14 04:08] VITALS: BP 152/86
[2019-07-14 08:41] VITALS: BP 143/88
[2019-07-14] MEDS: ASPIRIN 81 MG ENTERIC COATED PO SCH (08:54)
[2019-07-14] MEDS: LEVOTHYROXINE SOD 0.112 MG TAB PO SCH (08:54)
[2019-07-14] MEDS: ACETAMINOPHEN 325 MG TAB PO PRN (08:54)
[2019-07-14] MEDS: SERTRALINE HCL 50 MG TAB PO SCH (08:54)
[2019-07-14] MEDS: CEPHALEXIN MONO 500 MG CAP PO SCH ×2 (08:54→21:11)
[2019-07-14] MEDS: METOPROLOL SUCC XL 50 MG TABCR 50 MG TAB.ER.24H PO SCH (08:54)
[2019-07-14] MEDS: PANTOPRAZOLE SOD 40 MG TABEC PO SCH (08:55)
[2019-07-14] MEDS: MYCOPHENOLATE MOFETIL 250 MG CAP PO SCH ×2 (08:55→21:10)
[2019-07-14] MEDS: ENOXAPARIN 40 MG/0.4ML SYR SC SCH (08:55)
[2019-07-14] MEDS: predniSONE 20 MG TAB PO SCH ×2 (08:55→21:11)
[2019-07-14] MEDS ORDERED: SALINE 0.65% NAS SPR 44 ML BTL PRN (11:10)
[2019-07-14 11:21] VITALS: BP 142/95
[2019-07-14] MEDS: ALPRAZolam 0.5 MG TAB PO PRN (11:27)
--- NOTE | 2019-07-14 12:03 | Hospitalist Progress Note ---
Subjective Progress Notes Subjective No acute events. He is complaining of some anxiety this morning. Patient Complains of: Neurological: No: Syncope, Confusion Cardiovascular: No: Palpitations Respiratory: Congestion Gastrointestinal: No Nausea, No Vomiting Physical Exam Vital Signs Date Time Temp Pulse Resp B/P (MAP) Pulse Ox O2 Delivery O2 Flow Rate FiO2 07/14/19 11:21 98.0 91 16 142/95 (111) 100 High-Flow Nasal Cannula 6.0 Intake and Output 07/14/19 07:04 Intake Total 440 ml Output Total 440 ml Balance 0 ml Intake Oral 440 ml Output Urine Total 440 ml General Appearance: Alert, Awake, No Acute Distress Cardiovascular: Regular Rate and Rhythm Respiratory: No Respiratory Distress Psych: Alert & Oriented X3, Other (Anxiety) Result Diagram: 07/11/1945507/11/19455 Assessment and Plan Problems: (1) Syncope Status: Acute Assessment & Plan: Secondary to Hypoxia related to his chronic lung disease, a- fib, pulmonary HTN. Chest CT shows some mild worsening of underlying disease, but no acute infiltrate. UA did show pyuria and culture grew E. coli which is fairly sensitive. He has deemed himself DNR/DNI. (2) UTI (urinary tract infection) Status: Resolved Assessment & Plan: He had pyuria and an elevated WBC upon admission. The urine culture is growing a fairly sensitive E. Coli. He was initially placed on IV ceftriaxone. He was transitioned to oral Keflex. (3) ILD (interstitial lung disease) Status: Chronic Assessment & Plan: Severe pulmonary fibrosis. It is difficult to evaluate his lung treviño on plain x-rays. CT scan does show mild progression. We have continued his CellCept. He was started on IV methylprednisolone and transitioned to oral prednisone. He is feeling better and requiring less O2. He is on 6 liters at rest and 10 liters with exertion. [facility] is prepared to supply the patient with the needed supplies to meet those O2 demands. This appears to be progression of his disease and he seems to understand very well, as does his family. They wished to pursue Hospice-type care at home. They have been able to meet with [facility] and plan to go home with Hospice. Likely discharge on 07/15, as his home care equipment will arrive on 07/14 and will be set up for home use by 07/15. (4) Closed right fibular fracture Status: Acute Assessment & Plan: was consulted by the ER staff. He reported this would not be a surgical case and recommended a boot and toe touch weight bearing. PT/OT are working with him. Unfortunately, given his end stage lung disease he is unable to ambulate on crutches or other means. His home equipment will be ready for use on 07/15. (5) Hypothyroidism Status: Chronic Assessment & Plan: Continue replacement therapy. (6) Pulmonary hypertension Status: Chronic Assessment & Plan: Severe, secondary to his advanced lung disease. (7) Diffuse systemic sclerosis Status: Chronic Assessment & Plan: He has been managed with CellCept 750mg PO BID. No changes at this time. (8) GERD (gastroesophageal reflux disease) Status: Chronic Assessment & Plan: He is on Protonix while he is here. (9) Atrial fibrillation, chronic Status: Chronic Assessment & Plan: He has been managed with metoprolol for rate control. He has not been on anticoagulation therapy other than aspirin. He had an adverse reaction to Xarelto. (10) CKD (chronic kidney disease) Status: Chronic Assessment & Plan: Mild. His creatinine at the time of admission is 1.2 and baseline appears to be around 1.5. He has been saline locked per his request. 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 Exam Sepsis Risk: No Definite Risk Problem Qualifiers (1) Syncope: Syncope type: unspecified Qualified Codes: R55 - Syncope and collapse (2) Closed right fibular fracture: Encounter type: initial encounter Fibula location: distal Fracture morphology: unspecified fracture morphology Qualified Codes: S82.831A - Other fracture of upper and lower end of right fibula, initial encounter for closed fracture CLARISA HOWARD Jul 14, 2019 12:03
[2019-07-14 15:39] VITALS: BP 148/114
--- NOTE | 2019-07-14 17:41 | NUR ---
PHYSICAL THERAPY INFORMATION TRANSFER SHEET BED MOBILITY: Minimum Assistance 1 person assist TRANSFERS: Minimum Assistance 1 person assist CGA GAIT: Non-ambulatory, as pt is unable to maintain TDWB with safe energy conservation. PT recommends pivot transfers to/from BSC or W/C. Ortho specialist has released pt to bear some weight through R) LE during brief pivot transfers so as not to overly strain respiration. Weightbearing Status: Touchdown weight bearing STAIRS: Pt unable to complete safely; recommend non-emergent transfer into the home. EXERCISES: Verbalizes Needs: Yes Understands Directions Yes Cooperative: Yes Family Teaching: Yes Physical Therapy Comment: Pt's has been instructed on safety with stand-pivot transfers to/from a variety of surfaces including bedside commode and W/C. Pt may bear some weight through R) LE during brief transfers only, but is to remain TTWB for any attempt at ambulation. PT recommends pivot transfers only as needed at this time in order to conserve energy while protecting R) LE fracture.
[2019-07-14 18:44] VITALS: BP 144/85
[2019-07-15] MEDS: ALPRAZolam 0.5 MG TAB PO PRN (06:59)
[2019-07-15] MEDS: ACETAMINOPHEN 325 MG TAB PO PRN (06:59)
[2019-07-15 07:08] VITALS: BP 161/114
[2019-07-15 07:31] VITALS: BP 158/100
[2019-07-15] MEDS: LEVOTHYROXINE SOD 0.112 MG TAB PO SCH (10:24)
[2019-07-15] MEDS: METOPROLOL SUCC XL 50 MG TABCR 50 MG TAB.ER.24H PO SCH (10:24)
[2019-07-15] MEDS: SERTRALINE HCL 50 MG TAB PO SCH (10:24)
[2019-07-15] MEDS: ASPIRIN 81 MG ENTERIC COATED PO SCH (10:25)
[2019-07-15] MEDS: predniSONE 20 MG TAB PO SCH (10:25)
[2019-07-15] MEDS: CEPHALEXIN MONO 500 MG CAP PO SCH (10:25)
[2019-07-15] MEDS: PANTOPRAZOLE SOD 40 MG TABEC PO SCH (10:25)
[2019-07-15] MEDS: ENOXAPARIN 40 MG/0.4ML SYR SC SCH (10:26)
[2019-07-15] MEDS: MYCOPHENOLATE MOFETIL 250 MG CAP PO SCH (10:30)
[2019-07-15] MEDS ORDERED: PRED-420 PO (10:46)
[2019-07-15] MEDS ORDERED: CEPH500C24 PO (10:46)
[2019-07-15] MEDS ORDERED: SERT-184 PO (10:46)
--- NOTE | 2019-07-15 10:54 | Hospitalist Depart ---
Discharge Summary Reason for Hosp/Final Diag: (1) Syncope Status: Acute Hospital Course & Plan: Secondary to Hypoxia related to his chronic lung disease, a-fib, pulmonary HTN. Chest CT shows some mild worsening of underlying disease, but no acute infiltrate. UA did show pyuria and culture grew E. coli which is fairly sensitive. He has deemed himself DNR/DNI. He plans to discharge home with hospice services. (2) UTI (urinary tract infection) Status: Resolved Hospital Course & Plan: He had pyuria and an elevated WBC upon admission. The urine culture is growing a fairly sensitive E. Coli. He was initially placed on IV ceftriaxone. He was transitioned to oral Keflex, and will remain on Keflex at home for at total of 14 days worth of antibiotics. (3) ILD (interstitial lung disease) Status: Chronic Hospital Course & Plan: Severe pulmonary fibrosis. It is difficult to evaluate his lung treviño on plain x-rays. CT scan does show mild progression. We have continued his CellCept. He was started on IV methylprednisolone and transitioned to oral prednisone. He is feeling better and requiring less O2. He is on 6 liters at rest and 10 liters with exertion. [facility] is prepared to supply the patient with the needed supplies to meet those O2 demands. This appears to be progression of his disease and he seems to understand very well, as does his family. They wished to pursue Hospice-type care at home. They have been able to meet with [facility] and plan to go home with Hospice. Likely discharge on 07/15, as his home care equipment will arrive on 07/14 and will be set up for home use by 07/15. (4) Closed right fibular fracture Status: Acute Hospital Course & Plan: was consulted by the ER staff. He reported this would not be a surgical case and recommended a boot and toe touch weight bearing. PT/OT are working with him. Unfortunately, given his end stage lung disease he is unable to ambulate on crutches or other means. His home equipment will be ready for use on 07/15. (5) Hypothyroidism Status: Chronic Hospital Course & Plan: Continue replacement therapy. (6) Pulmonary hypertension Status: Chronic Hospital Course & Plan: Severe, secondary to his advanced lung disease. (7) Diffuse systemic sclerosis Status: Chronic Hospital Course & Plan: He has been managed with CellCept 750mg PO BID. No changes at this time. (8) GERD (gastroesophageal reflux disease) Status: Chronic Hospital Course & Plan: He is on Protonix while he is here. (9) Atrial fibrillation, chronic Status: Chronic Hospital Course & Plan: He has been managed with metoprolol for rate control. He has not been on anticoagulation therapy other than aspirin. He had an adverse reaction to Xarelto. (10) CKD (chronic kidney disease) Status: Chronic Hospital Course & Plan: Mild. His creatinine at the time of admission is 1.2 and baseline appears to be around 1.5. He has been saline locked per his request. (11) Dysphoric mood Status: Chronic Hospital Course & Plan: He has been started on Zoloft 50mg daily, and Xanax 0.5mg TID PRN for anxiety. Departure Weight (Pounds): 135 Result Diagram: 07/11/1945507/11/19455 Condition: Improved Discharge: Home, Hospice Home Health RN Follow Up For: Medication Management, Nursing Assessment Home Health [employer] Follow Up For: ADL Assistance Discharge Code Status: DNR, DNI Discharge Instructions Home Meds Active Scripts Sertraline Hcl (SERTRALINE HCL) 50 Mg Tablet, 50 MG PO QDAY, #30 TAB Prov:CLARISA HOWARD 07/15/19 Prednisone 10 Mg Tab (PREDNISONE 10 MG TAB) 10 Mg Tab.ds.pk, 10 MG PO DIRECT ED, #14 TAB Take 2 tablets each day for 4 days, then 1 tablet each day for 4 days, then 1/2 tablet each day for 4 days, then off. Prov:CLARISA HOWARD 07/15/19 Cephalexin Monohydrate (CEPHALEXIN) 500 Mg Cap, 500 MG PO BID, #17 CAP Prov:CLARISA HOWARD 07/15/19 Magnesium Oxide (MAGNESIUM OXIDE) 500 Mg Tablet, 500 MG PO DIRECTED, #30 2 in am 2 at noon 2 at night Prov:SAMREEN DE LA TORRE MD 04/11/19 Reported Medications Lutein (LUTEIN) 6 Mg Capsule, 1 CAP PO QDAY, CAPSULE 07/11/19 [place]-3 Fatty Acids/Fish Oil (FISH OIL 1,000 MG CAPSULE) 1 Each Capsule, 1 CAP PO QDAY, CAPSULE 07/11/19 Losartan Potassium (LOSARTAN POTASSIUM) 50 Mg Tablet, 0.5 TAB PO QDAY 03/28/19 Amiloride Hcl (AMILORIDE HCL) 5 Mg Tablet, 1 TAB PO QDAY 03/28/19 Omeprazole (OMEPRAZOLE) 40 Mg Capsule.dr, 1 TAB PO QDAY 03/28/19 Metoprolol Succinate (METOPROLOL SUCCINATE) 50 Mg Tab.er.24h, 50 MG PO QDAY 03/28/19 Atorvastatin Calcium (ATORVASTATIN CALCIUM) 40 Mg Tablet, 40 MG PO QDAY 03/28/19 Levothyroxine Sodium (LEVOXYL) 112 Mcg Tablet, 1 TAB PO QDAY 03/28/19 Mycophenolate Mofetil (MYCOPHENOLATE MOFETIL) 250 Mg Capsule, 750 CAP PO BID 03/28/19 Aspirin (ADULT LOW DOSE ASPIRIN EC) 81 Mg Tablet.dr, 1 TAB PO QAM, 0 Refills 05/09/13 Discontinued Reported Medications Amlodipine Besylate (AMLODIPINE BESYLATE) 5 Mg Tablet, 1 TAB PO QDAY 03/28/19 Diet: Regular Activity: As Tolerated Special Instructions: Take your prednisone as directed: Take 2 tablets each day for 4 days, Then take 1 tablet each day for 4 days, then take 1/2 tablet each day for 4 days, then off. Finish your full prescription of antibiotics. Drink plenty of fluids. Follow up with Hospice for home care. Copies to: SAMREEN DE LA TORRE MD ; Venous Thromboembolism Antithrombotics Is Pt On Any Antithrombotics?: Yes Problem Qualifiers (1) Syncope: Syncope type: unspecified Qualified Codes: R55 - Syncope and collapse (2) Closed right fibular fracture: Encounter type: initial encounter Fibula location: distal Fracture morphology: unspecified fracture morphology Qualified Codes: S82.831A - Other fracture of upper and lower end of right fibula, initial encounter for closed fr CLARISA Torrez Jul 15, 2019 10:53
[2019-07-15] MEDS ORDERED: ALPR-429 PO (13:46)
== END 2019-07-15 13:55 | disposition hospice, home (50) | DRG 690 ==
LOC: ER 21:09 → MED 23:09
PROVIDERS: ADMIT Internal Medicine; ATTEND Internal Medicine
DX: N39.0 Urinary tract infection, site not specified (principal); J84.9 Interstitial pulmonary disease, unspecified; S82.831A Other fracture of upper and lower end of right fibula, initial encounter for closed fracture; I48.2 Chronic atrial fibrillation; I12.9 Hypertensive chronic kidney disease with stage 1 through stage 4 chronic kidney disease, or unspecified chronic kidney disease; N18.3 Chronic kidney disease, stage 3 (moderate); Z66 Do not resuscitate; B96.20 Unspecified Escherichia coli [E. coli] as the cause of diseases classified elsewhere; E03.9 Hypothyroidism, unspecified; M34.9 Systemic sclerosis, unspecified; I27.20 Pulmonary hypertension, unspecified; K21.9 Gastro-esophageal reflux disease without esophagitis; E78.5 Hyperlipidemia, unspecified; R55 Syncope and collapse; Z85.46 Personal history of malignant neoplasm of prostate
CPT/HCPCS: 36415; 36416; 36600; 70450; 71045; 71250; 81001; 82040; 82247; 82310; 82374; 82435; 82565; 82803; 82947; 82948; 83605; 83880; 84075; 84132; 84155; 84295; 84443; 84450; 84460; 84484; 84520; 85025; 87040; 87077; 87088; 87186; 93005; 94640; 97162; 97166; A4216; J0696; J1650; J2543; J2930; J7030; J7512

== ENCOUNTER → 2019-07-09 | Outpatient (CLI) | payer MEDICARE, OTHER ==
[2015-09-16 11:39] VITALS: BMI 20.5
[~2019-07-09] MED LIST changes: +ALPR-429 PO; +CEPH500C24 PO; +LUTE6CAP11 PO; +OMEG-11 PO; +PRED-420 PO; +SERT-184 PO
== END ==
LOC: AMB 20:29
PROVIDERS: ATTEND Nurse Practitioner
DX: R55 Syncope and collapse (principal); R53.1 Weakness; R41.82 Altered mental status, unspecified
CPT/HCPCS: A0425; A0427

== ENCOUNTER → 2019-07-15 | Outpatient (CLI) | payer MEDICARE, OTHER ==
[2015-09-16 11:39] VITALS: BMI 20.5
[~2019-07-15] MED LIST changes: +ALPR-429 PO; +CEPH500C24 PO; +LUTE6CAP11 PO; +OMEG-11 PO; +PRED-420 PO; +SERT-184 PO
== END ==
LOC: AMB 13:22
PROVIDERS: ATTEND Nurse Practitioner
DX: R09.02 Hypoxemia (principal); R53.1 Weakness
CPT/HCPCS: A0425; A0428